=== PATIENT | female | born 1970 | race Caucasian/White ===

== ENCOUNTER 2016-04-18 11:23 | Outpatient (CLI) | payer MEDICAID | END 2016-04-18 11:24 | disposition home or self-care (01) | DX: Z13.220 Encounter for screening for lipoid disorders (principal); R53.82 Chronic fatigue, unspecified ==

== ENCOUNTER 2016-04-20 10:30 | Outpatient (CLI) | payer MEDICAID | END 2016-04-20 10:31 | disposition home or self-care (01) | DX: E78.5 Hyperlipidemia, unspecified (principal); R53.82 Chronic fatigue, unspecified ==

== ENCOUNTER 2016-05-04 15:46 | Outpatient (CLI) | payer MEDICAID | END 2016-05-04 15:47 | disposition home or self-care (01) | DX: I73.9 Peripheral vascular disease, unspecified (principal) ==

== ENCOUNTER 2016-05-20 | Outpatient (CLI) | payer MEDICAID | END 2016-05-20 09:51 | disposition critical access hospital (66) | DX: T50.995A Adverse effect of other drugs, medicaments and biological substances, initial encounter (principal) | CPT/HCPCS: A0425; A0427 ==

== ENCOUNTER 2016-05-20 10:11 | Emergency (ER) | payer MEDICAID ==
[2016-05-20] MEDS ORDERED: predniSONE 20 MG TABLET PO STA (10:26)
[2016-05-20] MEDS ORDERED: predniSONE 20 MG TABLET ONE (10:45)
== END 2016-05-20 12:00 | disposition home or self-care (01) ==
DX: T43.015A Adverse effect of tricyclic antidepressants, initial encounter (principal); L29.9 Pruritus, unspecified; I10 Essential (primary) hypertension; E78.00 Pure hypercholesterolemia, unspecified; M19.90 Unspecified osteoarthritis, unspecified site; M79.7 Fibromyalgia
CPT/HCPCS: 99283; J7512

== ENCOUNTER 2016-06-07 15:03 | Outpatient (CLI) | payer MEDICAID | END 2016-06-07 15:04 | disposition home or self-care (01) | DX: I10 Essential (primary) hypertension (principal) ==

== ENCOUNTER 2016-08-10 10:59 | Outpatient (CLI) | payer MEDICAID ==
[2016-08-10 18:58] LABS: POTASSIUM 3.8 mmol/L (3.5-5.0)
[2016-08-10 19:19] LABS: FOLATE 7.76 ng/mL (5.90 - >24.8)
[2016-08-14 20:01] LABS: TEST RESULT REPORT (())
[2016-08-16 16:10] LABS: ALPHA-TOCOPHEROL 12.7 mg/L (5.7-19.9); BETA-GAMMA-TOCOPHEROL 1.4 mg/L (< 4.3); VITAMIN A (RETINOL) 29 mcg/dL (38-98)
== END 2016-08-10 11:00 | disposition home or self-care (01) ==
LOC: LAB.F 10:59
PROVIDERS: ATTEND Nurse Practitioner Family
DX: R53.83 Other fatigue (principal)
CPT/HCPCS: 36415; 81599; 82306; 82607; 82746; 83540; 83735; 84132; 84207; 84252; 84425; 84446; 84466; 84590; 84630

== ENCOUNTER 2016-08-13 11:05 | Outpatient (CLI) | payer MEDICAID | END 2016-08-13 11:06 | disposition home or self-care (01) | DX: Z00.01 Encounter for general adult medical examination with abnormal findings (principal) ==

== ENCOUNTER 2016-10-15 09:03 | Outpatient (CLI) | payer MEDICAID | END 2016-10-15 09:04 | disposition critical access hospital (66) | LOC: EMS 09:03 | PROVIDERS: ATTEND Surgery | DX: M79.675 Pain in left toe(s) (principal); R52 Pain, unspecified; R55 Syncope and collapse | CPT/HCPCS: A0425; A0429 ==

== ENCOUNTER 2016-10-15 09:30 | Emergency (ER) | payer MEDICAID ==
--- NOTE | 2016-10-15 10:18 | ED Physician Documentation ---
History of Present Illness - Stated complaint Stated Complaint: TOE PX - Chief complaint Chief Complaint: General - Additonal information Additional information: hx from pt 46 f denies preg Pmhx is extensive but pertinent positives are chronic faitgue, fobromyalgia, probable IBS, migraines, chronic pain, and POTS (postural orthostatic tachycardia) with recurrent and freq syncope (she reports being worked up for syncope already) she has a cyst removed from her right great toe last week in [facility] - saw PMD Saturday to have sutures removed - states that since then she has had bleeding and been finding bits of retained suture this AM after caring for her wound she raised her arms in frustration and that triggered her POTS and so she had syncope and fell, landng on the left knee which was already injured after synope and fall August 23 and also pulling the R tricep region did not hit head or hurt neck alsways has chest pain not new or different today has had focal mid L abd pain for a week or two and fears a hernia Review of Systems Constitutional: denies: Fever, Chills Cardiac: reports: Chest pain / pressure (not new) Respiratory: denies: Dyspnea GI: reports: Abdominal Pain. denies: Vomiting : denies: Now EGA (denies) Musculoskeletal: denies: Neck pain Neurologic: reports: Syncope (recurrent 2/2 POTS). 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 : None Psych: None Musculoskeletal: Osteoarthritis, Fibromyalgia, Fatigue Derm: None - Past Surgical History Past Surgical History: No - Present Medications Home Medications: Ambulatory Orders Medication Instructions Recorded Confirmed diphenhydrAMINE [Benadryl] 25 mg PO .FREQ 08/13/15 05/20/16 Tramadol HCl 50 mg PO Q6H PRN #20 tablet 03/21/16 05/20/16 Prednisone 40 mg PO DAILY 3 Days 05/20/16 Promethazine [Phenergan] 25 mg PO Q6H PRN 05/20/16 05/20/16 Anusol TID 10/15/16 Cetirizine [ZyrTEC] 10/15/16 Clobetasol Propionate/Emoll 15 gm TP 10/15/16 [Clobetasol Emollient 0.05% Crm] Diazepam 10 mg PO PRN 10/15/16 10/15/16 Doxycycline Monohydrate [Oracea] 20 mg PO DAILY 10/15/16 10/15/16 Epinephrine [Epipen 2-Kirk] 10/15/16 Ketotifen Fumarate [Allergy Eye 10 ml OP 10/15/16 Drops] Promethazine [Phenergan] 25 mg PO Q6H PRN 10/15/16 10/15/16 Topiramate [Topamax] 100 mg PO BID 10/15/16 10/15/16 Triamcinolone Acetonide [Nasacort] 10.8 ml NS 10/15/16 - Allergies Allergies/Adverse Reactions: Allergies Allergy/AdvReac Type Severity Reaction Status Date / Time apple Allergy Unknown Verified 10/15/16 09:52 barley Allergy Unknown Verified 10/15/16 09:52 garlic Allergy Unknown Verified 10/15/16 09:52 milk Allergy Unknown Verified 10/15/16 09:52 milnacipran HCl * Allergy Rash Verified 05/20/16 10:23 [From Savella] oats Allergy Unknown Verified 10/15/16 09:52 onion Allergy Unknown Verified 10/15/16 09:52 orange Allergy Unknown Verified 10/15/16 09:52 peanut Allergy Unknown Verified 10/15/16 09:52 pineapple Allergy Unknown Verified 10/15/16 09:52 potato Allergy Unknown Verified 10/15/16 09:52 rice Allergy Unknown Verified 10/15/16 09:52 soy Allergy Unknown Verified 10/15/16 09:52 Sulfa (Sulfonamide Allergy Rash Verified 12/23/15 19:38 Antibiotics) tomato Allergy Unknown Verified 10/15/16 09:52 wheat Allergy Unknown Verified 10/15/16 09:52 eggs Allergy Unknown Uncoded 10/15/16 09:52 pepe Allergy Unknown Uncoded 10/15/16 09:52 - Social History Does the pt smoke?: No Smoking Status: Never smoker Does the pt drink ETOH?: No Does the pt have substance abuse?: No - Immunizations Immunizations are current?: Yes - POLST Patient has POLST: No PD ED PE NORMAL - Vitals Vital signs reviewed: Yes - General General: Other (alert cooperative wearing sunglasses and sound cancelling head phones) - HEENT HEENT: Pharynx benign - Neck Neck: No bony TTP - Cardiac Cardiac: RRR - Respiratory Respiratory: No respiratory distress, Clear bilaterally - Abdomen Abdomen: Soft, Other (focal TTP mid L mid abd s palpable defect) - Extremities Extremities: No deformity, Other (TTP patella L knee but no laxity to ACL MCL LL , difficult to range to test mensicus, MSV intact. R great toe appears to be healign well, some local smalle rythma not spreading, no dc, no dehisc, MSV intact. R shoulder full ROM, some TTP to posterior / trip region s palp defect, no hange or color bruising etc, MSV intact) Results - Vitals Vitals: Vital Signs - 24 hr 10/15/16 09:35 Temperature 36.4 C L Heart Rate 93 Respiratory 18 Rate Blood Pressure 139/82 H O2 Saturation 100 Oxygen O2 Source Room air - Tele (time rhythm occurred) 1130 Telemetry / rhythm strip: Other (NSR nl QT) PD MEDICAL DECISION MAKING - ED course ED course: syncope is recurrent and already worked up Departure - Departure Disposition: 01 Home, Self Care Clinical Impression: Visit for wound check Syncope Qualifiers: Syncope type: unspecified Qualified Code(s): R55 - Syncope and collapse Knee injury Qualifiers: Encounter type: initial encounter Laterality: left Qualified Code(s): S89.92XA - Unspecified injury of left lower leg, initial encounter Abdominal pain Qualifiers: Abdominal location: unspecified location Qualified Code(s): R10.9 - Unspecified abdominal pain Strain of left triceps muscle Qualifiers: Encounter type: initial encounter Qualified Code(s): S46.312A - Strain of muscle, fascia and tendon of triceps, left arm, initial encounter Condition: Fair Instructions: ED Immobilizer Knee, ED Crutch Walking Follow-Up: [facility] [Provider Group] ERIK VAZ MD [Provider Admit Priv/Credential] - Mariaa Dixon ARNP [Primary Care Provider] - Comments: Your heart is a regular rate and rhythm now The xray of your abdomen does not show a bowel blockage - it is still possible to have a hernia (defect in the abdominal wall muscle) without bowel being involved but in that case it is not an emergency - please follow up with surgery clinic if the symptoms persist - if you feel better you do not need to see the surgeon - you need to call to schedule. The knee xray shows a possible irregularity along the margin of the bone and some fluid in the knee joint - you will need further imaging such as a MRI which your PMD or orthopedics can arrange - in the meantime you need to wear the knee brace at all times and use the crutches or ride in your wheelchair and not bear any weight on that leg at all - you also need to call to schedule the orthopedic appointment. You can apply ice for 20 minutes three times a day as needed for pain and swelling Also apply ice to the right tricep for twenty minutes three times a day until better The toe wound seems to be healing well - continue your home wound care And follow up with your PMD to get your blood pressure rechecked
--- NOTE | 2016-10-15 11:01 | XRAY Preliminary Report ---
Exam: XR Knee 4 View LT Impression: Mild cortical irregularity involving the medial tibial that may represent a fracture. Knee joint effusion. If pain persists, a MRI of the knee is recommended. [facility] SITE ID: [id number]
--- NOTE | 2016-10-15 11:03 | XRAY Report ---
EXAM: LEFT KNEE RADIOGRAPHY EXAM DATE: 10/15/2016 10:36 AM. CLINICAL HISTORY: Fell on knee. COMPARISON: None. TECHNIQUE: 4 views. FINDINGS: Mild cortical irregularity is noted inferior to the medial tibial plateau that may represent a fractu re. There is a knee joint effusion. No radiopaque foreign body is seen. The joint spaces are well pre served. Impression: Mild cortical irregularity involving the medial tibial that may represent a fracture. Knee joint effusion. If pain persists, a MRI of the knee is recommended. [facility] Referring Provider Line: [phone] SITE ID: [id number]
--- NOTE | 2016-10-15 11:04 | XRAY Preliminary Report ---
Exam: XR Abdomen 1 View IMPRESSION: Normal 1-view abdomen x-ray. [facility] SITE ID: [id number]
--- NOTE | 2016-10-15 11:06 | XRAY Report ---
EXAM: ABDOMEN RADIOGRAPHY EXAM DATE: 10/15/2016 10:35 AM. CLINICAL HISTORY: Single upright. COMPARISON: None. TECHNIQUE: 2 view. FINDINGS: Bowel Gas Pattern: Within normal limits. No dilated loops. Other: None. IMPRESSION: Normal 1-view abdomen x-ray. [facility] Referring Provider Line: [phone] SITE ID: [id number]
[2016-10-15 12:12] VITALS: BP 136/74
== END 2016-10-15 12:00 | disposition home or self-care (01) ==
LOC: EDUNIT# → ED 09:30
DX: R55 Syncope and collapse (principal); S89.92XA Unspecified injury of left lower leg, initial encounter; W18.30XA Fall on same level, unspecified, initial encounter; W22.8XXA Striking against or struck by other objects, initial encounter; R10.9 Unspecified abdominal pain; I10 Essential (primary) hypertension
CPT/HCPCS: 74000; 99283; 99284

== ENCOUNTER 2016-10-30 11:57 | Emergency (ER) | payer MEDICAID ==
[2016-10-30 12:04] VITALS: BP 141/92
--- NOTE | 2016-10-30 13:22 | ED Physician Documentation ---
History of Present Illness - Stated complaint Stated Complaint: R BIG TOE PX - Chief complaint Chief Complaint: Ext Problem - Additonal information Additional information: Patient is a 46-year-old female who had a ganglion cyst removed from her right great toe several weeks ago. She complains of swelling of the toe and is concerned about a possible infection. She denies any other complaints such as fever or chills. There is no nausea vomiting, constipation diarrhea or lower urinary symptoms. This patient does have a history of chronic pain disorders including crying fibromyalgia and migraines. Review of systems: For pertinent positive and negatives in the review of systems please see the history of present illness, otherwise all other systems have been reviewed and are negative. Dragon disclaimer: Parts of this medical record were created using voice recognition technology. Because of the inherent limitations of this system, occasional same sounding word substitutions do occur and persist despite proofreading. Please read the document for context. Review of Systems Constitutional: denies: Fever, Chills PD PAST MEDICAL HISTORY - Past Medical History Cardiovascular: Hypertension, High cholesterol Respiratory: None Neuro: None, Motion sickness Endocrine/Autoimmune: None GI: None HEALTHCARE OR MEDICAL: None : None Psych: None Musculoskeletal: Osteoarthritis, Fibromyalgia, Fatigue Derm: None - Past Surgical History Past Surgical History: No - Present Medications Home Medications: Ambulatory Orders Medication Instructions Recorded Confirmed diphenhydrAMINE [Benadryl] 25 mg PO .FREQ 08/13/15 05/20/16 Tramadol HCl 50 mg PO Q6H PRN #20 tablet 03/21/16 05/20/16 Prednisone 40 mg PO DAILY 3 Days 05/20/16 Promethazine [Phenergan] 25 mg PO Q6H PRN 05/20/16 05/20/16 Anusol TID 10/15/16 Cetirizine [ZyrTEC] 10/15/16 Clobetasol Propionate/Emoll 15 gm TP 10/15/16 [Clobetasol Emollient 0.05% Crm] Diazepam 10 mg PO PRN 10/15/16 10/15/16 Doxycycline Monohydrate [Oracea] 20 mg PO DAILY 10/15/16 10/15/16 Epinephrine [Epipen 2-Kirk] 10/15/16 Ketotifen Fumarate [Allergy Eye 10 ml OP 10/15/16 Drops] Promethazine [Phenergan] 25 mg PO Q6H PRN 10/15/16 10/15/16 Topiramate [Topamax] 100 mg PO BID 10/15/16 10/15/16 Triamcinolone Acetonide [Nasacort] 10.8 ml NS 10/15/16 - Allergies Allergies/Adverse Reactions: Allergies Allergy/AdvReac Type Severity Reaction Status Date / Time apple Allergy Unknown Verified 10/30/16 12:05 barley Allergy Unknown Verified 10/30/16 12:05 garlic Allergy Unknown Verified 10/30/16 12:05 milk Allergy Unknown Verified 10/30/16 12:05 milnacipran HCl * Allergy Rash Verified 10/30/16 12:05 [From Savella] oats Allergy Unknown Verified 10/30/16 12:05 onion Allergy Unknown Verified 10/30/16 12:05 orange Allergy Unknown Verified 10/30/16 12:05 peanut Allergy Unknown Verified 10/30/16 12:05 pineapple Allergy Unknown Verified 10/30/16 12:05 potato Allergy Unknown Verified 10/30/16 12:05 rice Allergy Unknown Verified 10/30/16 12:05 soy Allergy Unknown Verified 10/30/16 12:05 Sulfa (Sulfonamide Allergy Rash Verified 10/30/16 12:05 Antibiotics) tomato Allergy Unknown Verified 10/30/16 12:05 wheat Allergy Unknown Verified 10/30/16 12:05 eggs Allergy Unknown Uncoded 10/30/16 12:05 pepe Allergy Unknown Uncoded 10/30/16 12:05 - Social History Does the pt smoke?: No Smoking Status: Never smoker Does the pt drink ETOH?: No Does the pt have substance abuse?: No - Immunizations Immunizations are current?: Yes - POLST Patient has POLST: No PD ED PE NORMAL - Vitals Vital signs reviewed: Yes - General General: Alert and oriented X 3, No acute distress - HEENT HEENT: Atraumatic, PERRL - Cardiac Cardiac: RRR - Respiratory Respiratory: No respiratory distress - Abdomen Abdomen: Normal bowel sounds - Extremities Extremities: Other (There is no evidence of infection on evaluation of the patient's right great toe. On inspection the tissue is macerated from over bandaging.) - Neuro Neuro: Alert and oriented X 3 - Psych Psych: Normal mood, Normal affect Results - Vitals Vitals: Vital Signs - 24 hr 10/30/16 12:00 Temperature 36.7 C Heart Rate 102 H Respiratory 16 Rate Blood Pressure 141/92 H O2 Saturation 99 Oxygen O2 Source Room air PD MEDICAL DECISION MAKING - ED course Complexity details: other ED course: Patient is a 46-year-old lady who presents with a macerated healing incision on her right great toe where a ganglion cyst was removed there is no evidence of any infection. This macerated tissue was removed using sharp debridement. A small amount of tissue was removed and the toe was wrapped in sterile gauze without tape over it to allow for desiccation of the tissue. Recommend against continued antibiotic since the toe is way too moist. Disposition to home Clinical impression: 1. Macerated skin of her right great toe status post debridement Departure - Departure Disposition: 01 Home, Self Care Clinical Impression: Maceration of skin Condition: Good Instructions: Wound Care Comments: Your healing wound was too wet. Please stop applying antibiotic ointment and keep it covered with a thin layer of gauze so it can dry out. Do not apply anything containing plastic like a Band-Aid which would hold in moisture.
== END 2016-10-30 13:30 | disposition home or self-care (01) ==
LOC: ED 11:57
DX: T69.021A Immersion foot, right foot, initial encounter (principal); Z98.890 Other specified postprocedural states; I10 Essential (primary) hypertension; E78.00 Pure hypercholesterolemia, unspecified; M79.7 Fibromyalgia; M19.90 Unspecified osteoarthritis, unspecified site
CPT/HCPCS: 99282; 99283

== ENCOUNTER 2016-11-08 08:11 | Outpatient (CLI) | payer MEDICAID ==
[2016-11-08 12:09] LABS: BILIRUBIN,URINE NEGATIVE (NEGATIVE); PH,URINE 6.5 PH (5.0-7.5)
[2016-11-08 12:21] LABS: UR CULTURE IF IND NOT INDICATED; WBC,URINE 0-3 /HPF (0-5)
== END 2016-11-08 08:12 ==
LOC: LAB.R 08:11
PROVIDERS: ATTEND Nurse Practitioner Family
DX: N30.90 Cystitis, unspecified without hematuria (principal)
CPT/HCPCS: 81001; 87086

== ENCOUNTER 2016-11-09 10:36 | Outpatient (CLI) | payer MEDICAID ==
[2016-11-13 14:01] LABS: TEST RESULT REPORT (())
== END 2016-11-09 10:37 | disposition home or self-care (01) ==
LOC: LAB.F 10:36
PROVIDERS: ATTEND Internal Medicine
DX: R19.4 Change in bowel habit (principal)
CPT/HCPCS: 36415; 81599; 82784

== ENCOUNTER 2016-11-21 08:00 | Outpatient (CLI) | payer MEDICAID | END 2016-11-21 08:01 | disposition home or self-care (01) | LOC: LAB.R 08:00 | PROVIDERS: ATTEND Internal Medicine | DX: R19.4 Change in bowel habit (principal) | CPT/HCPCS: 82705; 83630; 87015; 87045; 87046; 87272; 87329; 87493 ==

== ENCOUNTER 2016-11-22 12:35 | Emergency (ER) | payer MEDICAID ==
--- NOTE | 2016-11-22 13:19 | ED Physician Documentation ---
PD HPI CHEST PAIN - Stated complaint Stated Complaint: CP - Chief complaint Chief Complaint: Cardiac - History obtained from History obtained from: Patient - History of Present Illness Timing - onset: Today, Last night Timing - onset during: Rest (she does not do much physical activity.) Timing - duration: Days (1) Timing - details: Gradual onset, Still present, Waxing and waning Quality: Aching, Sharp, Pain Location: Substernal, Left chest Radiation: Back Worsened by: Movement, Palpation. No: Inspiration Associated symptoms: Shortness of air. No: Nausea, Feeling faint / dizzy, Palpitations, Cough Similar symptoms before: No diagnosis (has chest pains and diffuse body pains nromally due to fibromyalgia, but chest pain much worse today than usual.) Recently seen: Not recently seen Review of Systems Constitutional: reports: Myalgias, Fatigue. denies: Fever, Chills Nose: denies: Rhinorrhea / runny nose, Congestion Throat: denies: Sore throat Cardiac: reports: Chest pain / pressure. denies: Palpitations Respiratory: reports: Dyspnea. denies: Cough, Wheezing GI: denies: Vomiting, Diarrhea Musculoskeletal: denies: Extremity swelling Neurologic: reports: Generalized weakness. 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 : None Psych: None Musculoskeletal: Osteoarthritis, Fibromyalgia, Fatigue Derm: None - Past Surgical History Past Surgical History: No - Present Medications Home Medications: Ambulatory Orders Medication Instructions Recorded Confirmed diphenhydrAMINE [Benadryl] 25 mg PO .FREQ 08/13/15 05/20/16 Tramadol HCl 50 mg PO Q6H PRN #20 tablet 03/21/16 05/20/16 Prednisone 40 mg PO DAILY 3 Days 05/20/16 Promethazine [Phenergan] 25 mg PO Q6H PRN 05/20/16 05/20/16 Anusol TID 10/15/16 Cetirizine [ZyrTEC] 10/15/16 Clobetasol Propionate/Emoll 15 gm TP 10/15/16 [Clobetasol Emollient 0.05% Crm] Diazepam 10 mg PO PRN 10/15/16 10/15/16 Doxycycline Monohydrate [Oracea] 20 mg PO DAILY 10/15/16 10/15/16 Epinephrine [Epipen 2-Kirk] 10/15/16 Ketotifen Fumarate [Allergy Eye 10 ml OP 10/15/16 Drops] Promethazine [Phenergan] 25 mg PO Q6H PRN 10/15/16 10/15/16 Topiramate [Topamax] 100 mg PO BID 10/15/16 10/15/16 Triamcinolone Acetonide [Nasacort] 10.8 ml NS 10/15/16 Dexamethasone [Decadron] 4 mg PO DAILY #5 tablet 11/22/16 HYDROcod/ACETAM 5/325 [[place] 5/325] 1 tab PO Q6H PRN #20 tablet 11/22/16 - Allergies Allergies/Adverse Reactions: Allergies Allergy/AdvReac Type Severity Reaction Status Date / Time apple Allergy Unknown Verified 11/22/16 12:52 barley Allergy Unknown Verified 11/22/16 12:52 garlic Allergy Unknown Verified 11/22/16 12:52 milk Allergy Unknown Verified 11/22/16 12:52 milnacipran HCl * Allergy Rash Verified 11/22/16 12:52 [From Savella] oats Allergy Unknown Verified 11/22/16 12:52 onion Allergy Unknown Verified 11/22/16 12:52 orange Allergy Unknown Verified 11/22/16 12:52 peanut Allergy Unknown Verified 11/22/16 12:52 pineapple Allergy Unknown Verified 11/22/16 12:52 potato Allergy Unknown Verified 11/22/16 12:52 rice Allergy Unknown Verified 11/22/16 12:52 soy Allergy Unknown Verified 11/22/16 12:52 Sulfa (Sulfonamide Allergy Rash Verified 11/22/16 12:52 Antibiotics) tomato Allergy Unknown Verified 11/22/16 12:52 wheat Allergy Unknown Verified 11/22/16 12:52 eggs Allergy Unknown Uncoded 11/22/16 12:52 pepe Allergy Unknown Uncoded 11/22/16 12:52 - Social History Does the pt smoke?: No Smoking Status: Never smoker Does the pt drink ETOH?: No Does the pt have substance abuse?: No - Immunizations Immunizations are current?: Yes - POLST Patient has POLST: No PD ED PE NORMAL - Vitals Vital signs reviewed: Yes - General General: Alert and oriented X 3, Well developed/nourished - HEENT HEENT: Pharynx benign - Neck Neck: Supple, no meningeal sign, No adenopathy - Cardiac Cardiac: RRR, No murmur, No rub - Respiratory Respiratory: Clear bilaterally, Other (chestwall tenderness diffusely) - Abdomen Abdomen: Soft, Non tender - Derm Derm: Normal color, Warm and dry - Extremities Extremities: No edema, No calf tenderness / cord - Neuro Neuro: Alert and oriented X 3, No motor deficit, Normal speech Results - Vitals Vitals: Vital Signs - 24 hr 11/22/16 11/22/16 11/22/16 12:45 13:37 14:23 Heart Rate 96 93 Respiratory 24 17 Rate Blood Pressure 128/74 127/94 H Blood Pressure 134/70 H [Left] Blood Pressure 128/74 [Right] O2 Saturation 99 99 11/22/16 11/22/16 11/22/16 14:28 15:11 16:11 Heart Rate 85 66 82 Respiratory 18 10 L 17 Rate Blood Pressure 127/94 H 130/89 H 122/78 Blood Pressure [Left] Blood Pressure [Right] O2 Saturation 97 98 97 Oxygen O2 Source Room air - EKG (time done) 12:43 Rate: Rate (enter#) (91) Rhythm: NSR [place]: Normal Intervals: Normal [place] QRS: Normal Ischemia: Normal ST segments. No: ST elevation c/w ischemia, ST depression - Labs Labs: Laboratory Tests 11/22/16 11/22/16 11/22/16 14:10 14:10 14:10 WBC 7.3 RBC 4.40 Hgb 13.5 Hct 39.9 MCV 90.7 MCH 30.6 MCHC 33.7 RDW 13.8 Plt Count 304 MPV 8.5 Neut # 5.4 Lymph # 1.5 [place] # 0.3 Eos # 0.1 Baso # 0.1 Absolute Nucleated RBC 0.00 Nucleated RBCs 0.0 ESR 22 H Sodium 139 Potassium 3.8 Chloride 109 Carbon Dioxide 22 Anion Gap 8.0 BUN 12 Creatinine 0.6 Estimated GFR (MDRD) 107 Glucose 107 H Calcium 8.9 Total Bilirubin 0.3 AST 18 ALT 13 Alkaline Phosphatase 76 Total Creatine Kinase 94 Troponin I C-Reactive Protein < 1.0 Total Protein 7.4 Albumin 4.3 Globulin 3.1 Albumin/Globulin Ratio 1.4 Lipase 34 11/22/16 14:10 WBC RBC Hgb Hct MCV MCH MCHC RDW Plt Count MPV Neut # Lymph # [place] # Eos # Baso # Absolute Nucleated RBC Nucleated RBCs ESR Sodium Potassium Chloride Carbon Dioxide Anion Gap BUN Creatinine Estimated GFR (MDRD) Glucose Calcium Total Bilirubin AST ALT Alkaline Phosphatase Total Creatine Kinase Troponin I < 0.04 C-Reactive Protein Total Protein Albumin Globulin Albumin/Globulin Ratio Lipase - Rads (name of study) chest xray Radiology: Prelim report reviewed (normal) ECHO Radiology: EMP read contemporaneously, Other (prelim report - no signficant process. EF good. No pericardial effusion. ) PD MEDICAL DECISION MAKING - ED course Complexity details: reviewed results, considered differential (given underlying fibro pain and such, hard to distinguish the chest pain. Got ECG, CXR, and ECHO which are okay, so no apparent significant cardiopulmonary process. ), d/w patient Departure - Departure Disposition: 01 Home, Self Care Clinical Impression: Chest pain Qualifiers: Chest pain type: precordial pain Qualified Code(s): R07.2 - Precordial pain Condition: Stable Record reviewed to determine appropriate education?: Yes Instructions: ED Chest Pain NonCardiac Follow-Up: Mariaa Dixon ARNP [Primary Care Provider] - Prescriptions: Dexamethasone [Decadron] 4 mg PO DAILY #5 tablet HYDROcod/ACETAM 5/325 [[place] 5/325] 1 tab PO Q6H PRN #20 tablet PRN Reason: Pain Comments: Drink lots of fluids. continue usual medications. Add dexamethasone daily for 5 days to see if a short steroid course would improve your fibromyalgia symptoms. Add Tylenol or hydrocodone if needed for worse pains. Follow-up with your primary care. Your chest x-ray, EKG, echocardiogram, blood tests appear normal and did not show any signs of heart or lung problems. Discharge Date/Time: 11/22/16 16:40
[2016-11-22] MEDS ORDERED: HYDROcod/ACETAM 5/325 MG TABLET PO STA (13:58)
[2016-11-22] MEDS ORDERED: ONDANSETRON ODT 4 MG TABLET TL STA (13:58)
[2016-11-22] MEDS ORDERED: diazePAM 5 MG TABLET PO STA (13:58)
[2016-11-22] MEDS ORDERED: DEXAMETHASONE 10 MG/ML VIAL PO STA (14:00)
[2016-11-22] MEDS ORDERED: diazePAM 5 MG TABLET PO ONE (14:14)
[2016-11-22] MEDS ORDERED: HYDROcod/ACETAM 5/325 MG TABLET ONE (14:15)
[2016-11-22] MEDS ORDERED: DEXAMETHASONE 10 MG/ML VIAL ONE (14:16)
[2016-11-22] MEDS ORDERED: ONDANSETRON ODT 4 MG TABLET ONE (14:16)
[2016-11-22 14:31] LABS: BASOPHILS # (AUTO) 0.1 10^3/uL (0.0-0.1); BASOPHILS % (AUTO) 0.8 %; EOSINOPHILS # (AUTO) 0.1 10^3/uL (0.0-0.7); EOSINOPHILS % (AUTO) 1.6 %; HCT - HEMATOCRIT 39.9 % (37.0-47.0); HGB - HEMOGLOBIN 13.5 g/dL (12.0-16.0); LYMPHOCYTES # (AUTO) 1.5 10^3/uL (1.5-3.5); LYMPHOCYTES % (AUTO) 19.8 %; MEAN CORPUSCULAR HEMOGLOBIN 30.6 pg (27.0-31.0); MEAN CORPUSCULAR HGB CONC 33.7 g/dL (32.0-36.0); MEAN CORPUSCULAR VOLUME 90.7 fL (81.0-99.0); MEAN PLATELET VOLUME 8.5 fL (7.9-10.8); MONOCYTES # (AUTO) 0.3 10^3/uL (0.0-1.0); MONOCYTES % (AUTO) 3.7 %; NEUTROPHILS # (AUTO) 5.4 10^3/uL (1.5-6.6); NEUTROPHILS % (AUTO) 74.1 %; RED CELL DISTRIBUTION WIDTH 13.8 % (12.0-15.0); UNCORRECTED WHITE BLOOD COUNT 7.3 x10^3/uL; WHITE BLOOD COUNT 7.3 x10^3/uL (4.8-10.8)
[2016-11-22 14:39] LABS: ALBUMIN/GLOBULIN RATIO 1.4 (1.0-2.2); BILIRUBIN,TOTAL 0.3 mg/dL (0.2-1.0); BUN - BLOOD UREA NITROGEN 12 mg/dL (6-20); CALCIUM 8.9 mg/dL (8.5-10.3); CARBON DIOXIDE - CO2 22 mmol/L (21-32); CHLORIDE 109 mmol/L (101-111); CREATININE 0.6 mg/dL (0.4-1.0); GFR - MDRD 107 (>89); GLUCOSE 107 mg/dL (70-100); LIPASE 34 U/L (22-51); POTASSIUM 3.8 mmol/L (3.5-5.0); SODIUM 139 mmol/L (135-145); TOTAL PROTEIN 7.4 g/dL (6.7-8.2)
--- NOTE | 2016-11-22 15:02 | XRAY Preliminary Report ---
Exam: XR Chest 2 View PA/LAT IMPRESSION: Normal 2-view chest radiography. [facility] SITE ID: [id number]
--- NOTE | 2016-11-22 15:06 | XRAY Report ---
EXAM: CHEST RADIOGRAPHY EXAM DATE: 11/22/2016 02:56 PM. CLINICAL HISTORY: Chest pain, headache, nausea and vomiting. COMPARISON: 11/10/2014. TECHNIQUE: 2 views. FINDINGS: Lungs/Pleura: No focal opacities evident. No pleural effusion. No pneumothorax. Normal volumes. Mediastinum: Heart and mediastinal contours are unremarkable. Other: Mild scoliosis. IMPRESSION: Normal 2-view chest radiography. [facility] Referring Provider Line: [phone] SITE ID: [id number]
[2016-11-22 16:13] VITALS: BP 122/78
== END 2016-11-22 16:40 | disposition home or self-care (01) ==
LOC: EDUNIT# → ED 12:35
DX: R07.2 Precordial pain (principal); I10 Essential (primary) hypertension; E78.00 Pure hypercholesterolemia, unspecified; M79.7 Fibromyalgia; M19.90 Unspecified osteoarthritis, unspecified site
CPT/HCPCS: 36415; 71020; 80053; 82550; 83690; 84484; 85025; 85651; 86140; 93005; 93306; 99283; 99284; A9270

== ENCOUNTER 2016-11-22 21:52 | Outpatient (CLI) | payer MEDICAID | END 2016-11-22 21:53 | disposition critical access hospital (66) | LOC: EMS 21:52 | PROVIDERS: ATTEND Surgery | DX: R07.9 Chest pain, unspecified (principal) | CPT/HCPCS: A0425; A0429 ==

== ENCOUNTER 2016-12-14 14:18 | Emergency (ER) | payer MEDICAID ==
[2016-12-14] MEDS ORDERED: ONDANSETRON ODT 4 MG TABLET TL STA (16:11)
--- NOTE | 2016-12-14 16:13 | ED Physician Documentation ---
History of Present Illness - Stated complaint Stated Complaint: NAUSEA - Chief complaint Chief Complaint: General - History obtained from History obtained from: Patient - History of Present Illness Timing: Other (She has a complicatedHistory of pots, chronic fatigue, fibromyalgia. She was in physical therapy today and was feeling persistently nauseous after a gradual onset headache, migraine which is not atypical for her. She requests some nausea medicine but declines IV fluids etc.) - Additonal information Additional information: She is chronically nauseous, the nausea is not new, nor is the headache. Review of Systems Ten Systems: 10 systems reviewed and negative Constitutional: reports: Chills (chronic). 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: None : None Psych: None Musculoskeletal: Osteoarthritis, Fibromyalgia, Fatigue Derm: None - Past Surgical History Past Surgical History: No - Present Medications Home Medications: Ambulatory Orders Medication Instructions Recorded Confirmed diphenhydrAMINE [Benadryl] 25 mg PO .FREQ 08/13/15 05/20/16 Tramadol HCl 50 mg PO Q6H PRN #20 tablet 03/21/16 05/20/16 Prednisone 40 mg PO DAILY 3 Days 05/20/16 Promethazine [Phenergan] 25 mg PO Q6H PRN 05/20/16 05/20/16 Anusol TID 10/15/16 Cetirizine [ZyrTEC] 10/15/16 Clobetasol Propionate/Emoll 15 gm TP 10/15/16 [Clobetasol Emollient 0.05% Crm] Diazepam 10 mg PO PRN 10/15/16 10/15/16 Doxycycline Monohydrate [Oracea] 20 mg PO DAILY 10/15/16 10/15/16 Epinephrine [Epipen 2-Kirk] 10/15/16 Ketotifen Fumarate [Allergy Eye 10 ml OP 10/15/16 Drops] Promethazine [Phenergan] 25 mg PO Q6H PRN 10/15/16 10/15/16 Topiramate [Topamax] 100 mg PO BID 10/15/16 10/15/16 Triamcinolone Acetonide [Nasacort] 10.8 ml NS 10/15/16 Dexamethasone [Decadron] 4 mg PO DAILY #5 tablet 11/22/16 HYDROcod/ACETAM 5/325 [[place] 5/325] 1 tab PO Q6H PRN #20 tablet 11/22/16 Ondansetron HCl [Zofran] 4 mg PO Q6H PRN #10 tablet 12/14/16 - Allergies Allergies/Adverse Reactions: Allergies Allergy/AdvReac Type Severity Reaction Status Date / Time apple Allergy Unknown Verified 11/22/16 12:52 barley Allergy Unknown Verified 11/22/16 12:52 garlic Allergy Unknown Verified 11/22/16 12:52 milk Allergy Unknown Verified 11/22/16 12:52 milnacipran HCl * Allergy Rash Verified 11/22/16 12:52 [From Savella] oats Allergy Unknown Verified 11/22/16 12:52 onion Allergy Unknown Verified 11/22/16 12:52 orange Allergy Unknown Verified 11/22/16 12:52 peanut Allergy Unknown Verified 11/22/16 12:52 pineapple Allergy Unknown Verified 11/22/16 12:52 potato Allergy Unknown Verified 11/22/16 12:52 rice Allergy Unknown Verified 11/22/16 12:52 soy Allergy Unknown Verified 11/22/16 12:52 Sulfa (Sulfonamide Allergy Rash Verified 11/22/16 12:52 Antibiotics) tomato Allergy Unknown Verified 11/22/16 12:52 wheat Allergy Unknown Verified 11/22/16 12:52 eggs Allergy Unknown Uncoded 11/22/16 12:52 pepe Allergy Unknown Uncoded 11/22/16 12:52 - Social History Does the pt smoke?: No Smoking Status: Never smoker Does the pt drink ETOH?: No Does the pt have substance abuse?: No - Immunizations Immunizations are current?: Yes - POLST Patient has POLST: No PD ED PE NORMAL - Vitals Vital signs reviewed: Yes (HR about 90 on my exam) - General General: Alert and oriented X 3, No acute distress - Neck Neck: Supple, no meningeal sign, No bony TTP - Cardiac Cardiac: RRR, No murmur - Respiratory Respiratory: No respiratory distress, Clear bilaterally - Abdomen Abdomen: Non tender - Neuro Neuro: Alert and oriented X 3, energy economist 2-12 intact, No motor deficit, No sensory deficit, Normal speech - Psych Psych: Normal mood, Normal affect Results - Vitals Vitals: Vital Signs - 24 hr 12/14/16 14:28 Temperature 37.0 C Heart Rate 126 H Respiratory 18 Rate Blood Pressure 157/110 H O2 Saturation 100 Oxygen O2 Source Room air PD MEDICAL DECISION MAKING - ED course ED course: The headache is gradual in onset and similar to prior headaches. As such I doubt subarachnoid hemorrhage. There are no infectious symptoms such as fever or stiff neck to make me suspect meningitis. No carbon monoxide exposure by history. Departure - Departure Disposition: Home, Self Care Clinical Impression: Migraine Qualifiers: Migraine type: without aura Status migrainosus presence: with status migrainosus Intractability: intractable Qualified Code(s): G43.011 - Migraine without aura, intractable, with status migrainosus Condition: Good Record reviewed to determine appropriate education?: Yes Instructions: ED Headache Migraine Prescriptions: Ondansetron HCl [Zofran] 4 mg PO Q6H PRN #10 tablet PRN Reason: Nausea / Vomiting Comments: Call your doctor to arrange a follow-up appointment, make the next available appointment. In the interim, return anytime if worse or if new symptoms develop. Your blood pressure was elevated today on check into the emergency department. This does not mean that you have hypertension, it is a common phenomenon to come to the emergency department and have elevated blood pressure. I recommend that she see your primary care physician within the week to have it rechecked when you are feeling better.
[2016-12-14] MEDS ORDERED: ONDANSETRON ODT 4 MG TABLET ONE (16:43)
[2016-12-14 16:46] VITALS: BP 155/78
== END 2016-12-14 16:49 | disposition home or self-care (01) ==
LOC: ED 14:18
DX: G43.011 Migraine without aura, intractable, with status migrainosus (principal); I10 Essential (primary) hypertension; E78.00 Pure hypercholesterolemia, unspecified; M79.7 Fibromyalgia
CPT/HCPCS: 99282; 99283; Q0162

== ENCOUNTER 2017-03-09 21:20 | Outpatient (CLI) | payer MEDICAID | END 2017-03-09 21:21 | disposition EMS.NT | LOC: EMS 21:20 | PROVIDERS: ATTEND Surgery | DX: R53.1 Weakness (principal); W01.0XXA Fall on same level from slipping, tripping and stumbling without subsequent striking against object, initial encounter; Y92.59 Other trade areas as the place of occurrence of the external cause ==

== ENCOUNTER 2017-04-16 13:21 | Outpatient (CLI) | payer MEDICAID | END 2017-04-16 13:22 | disposition critical access hospital (66) | LOC: EMS 13:21 | PROVIDERS: ATTEND Surgery | DX: R60.0 Localized edema (principal); R52 Pain, unspecified | CPT/HCPCS: A0425; A0429 ==

== ENCOUNTER 2017-04-16 13:44 | Emergency (ER) | payer MEDICAID ==
[2017-04-16] MEDS ORDERED: DEXAMETHASONE 10 MG/ML VIAL IVP STA (14:43)
[2017-04-16] MEDS ORDERED: SODIUM CHLORIDE 0.9% 1,000 ML IV ONE (14:43)
--- NOTE | 2017-04-16 14:47 | ED Physician Documentation ---
History of Present Illness - Stated complaint Stated Complaint: ALLERGIC RX - Chief complaint Chief Complaint: General - History obtained from History obtained from: Patient - History of Present Illness Timing: How many days ago (4) - Additonal information Additional information: 46-year-old female with a history of chronic fatigue syndrome and pots syndrome has multiple food allergies and 4 days ago she had a temporary caregiver who made her something to eat that she believes was not on her list of safe foods. She developed some swelling of her gums and nausea and vomiting. She has been having some issue with her stomach for the past 4 days and she is come in now with inability to eat or drink secondary to the pain in her mouth. She has blisters along her gums. Review of Systems Constitutional: reports: Fatigue, Sweats. 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 : None Psych: None Musculoskeletal: Osteoarthritis, Fibromyalgia, Fatigue Derm: None - Past Surgical History Past Surgical History: No - Present Medications Home Medications: Ambulatory Orders Medication Instructions Recorded Confirmed diphenhydrAMINE [Benadryl] 25 mg PO .FREQ 08/13/15 05/20/16 Tramadol HCl 50 mg PO Q6H PRN #20 tablet 03/21/16 05/20/16 Promethazine [Phenergan] 25 mg PO Q6H PRN 05/20/16 05/20/16 predniSONE [Prednisone] 40 mg PO DAILY 3 Days tablet 05/20/16 Anusol TID 10/15/16 Cetirizine [ZyrTEC] 10/15/16 Clobetasol Propionate/Emoll 15 gm TP 10/15/16 [Clobetasol Emollient 0.05% Crm] Doxycycline Monohydrate [Oracea] 20 mg PO DAILY 10/15/16 10/15/16 Epinephrine [Epipen 2-Kirk] 10/15/16 Ketotifen Fumarate [Allergy Eye 10 ml OP 10/15/16 Drops] Promethazine [Phenergan] 25 mg PO Q6H PRN 10/15/16 10/15/16 Topiramate [Topamax] 100 mg PO BID 10/15/16 10/15/16 Triamcinolone Acetonide [Nasacort] 10.8 ml NS 10/15/16 diazePAM [Diazepam] 10 mg PO PRN 10/15/16 10/15/16 Dexamethasone [Decadron] 4 mg PO DAILY #5 tablet 11/22/16 HYDROcod/ACETAM 5/325 [[place] 5/325] 1 tab PO Q6H PRN #20 tablet 11/22/16 Ondansetron HCl [Zofran] 4 mg PO Q6H PRN #10 tablet 12/14/16 - Allergies Allergies/Adverse Reactions: Allergies Allergy/AdvReac Type Severity Reaction Status Date / Time fludrocortisone Allergy Unknown Hives Verified 04/16/17 15:19 apple Allergy Unknown Verified 11/22/16 12:52 barley Allergy Unknown Verified 11/22/16 12:52 garlic Allergy Unknown Verified 11/22/16 12:52 milk Allergy Unknown Verified 11/22/16 12:52 milnacipran HCl * Allergy Rash Verified 11/22/16 12:52 [From Savella] oats Allergy Unknown Verified 11/22/16 12:52 onion Allergy Unknown Verified 11/22/16 12:52 orange Allergy Unknown Verified 11/22/16 12:52 peanut Allergy Unknown Verified 11/22/16 12:52 pineapple Allergy Unknown Verified 11/22/16 12:52 potato Allergy Unknown Verified 11/22/16 12:52 rice Allergy Unknown Verified 11/22/16 12:52 soy Allergy Unknown Verified 11/22/16 12:52 Sulfa (Sulfonamide Allergy Rash Verified 11/22/16 12:52 Antibiotics) tomato Allergy Unknown Verified 11/22/16 12:52 wheat Allergy Unknown Verified 11/22/16 12:52 eggs Allergy Unknown Uncoded 11/22/16 12:52 pepe Allergy Unknown Uncoded 11/22/16 12:52 - Social History Does the pt smoke?: No Smoking Status: Never smoker Does the pt drink ETOH?: No Does the pt have substance abuse?: No - Immunizations Immunizations are current?: Yes - POLST Patient has POLST: No PD ED PE NORMAL - Vitals Vital signs reviewed: Yes (tachy and hypertensive ) - General General: Alert and oriented X 3, Well developed/nourished, Other (46-year-old female lying supine on the bed with dark glasses in a darkened room with earmuffs on. She has a startle response with wailing in pain with just touching her knee on entering the room.) - HEENT HEENT: Atraumatic, PERRL, EOMI, Other (There are multiple deflated blisters over the gums on the lower teeth laterally) - Neck Neck: Supple, no meningeal sign, No bony TTP - Cardiac Cardiac: RRR, No murmur - Respiratory Respiratory: No respiratory distress, Clear bilaterally - Abdomen Abdomen: Soft, Non tender - Back Back: No CVA TTP, No spinal TTP - Derm Derm: Normal color, Warm and dry, No rash - Extremities Extremities: No deformity, No edema, Other (The patient does have allodynia touching her almost anywhere causes some pain response) - Neuro Neuro: No motor deficit, No sensory deficit, Normal speech Eye Opening: Spontaneous Motor: Obeys Commands Verbal: Oriented GCS Score: 15 - Psych Psych: Normal mood, Normal affect Results - Vitals Vitals: Vital Signs - 24 hr 04/16/17 13:46 Temperature 36.5 C Heart Rate 106 H Respiratory 18 Rate Blood Pressure 134/90 H O2 Saturation 100 Oxygen O2 Source Room air - Labs Labs: Laboratory Tests 04/16/17 04/16/17 04/16/17 14:54 14:54 14:54 WBC 6.2 RBC 4.41 Hgb 13.6 Hct 39.4 MCV 89.3 MCH 30.7 MCHC 34.4 RDW 13.2 Plt Count 253 MPV 8.7 Neut # 4.4 Lymph # 1.3 L [place] # 0.4 Eos # 0.1 Baso # 0.0 Absolute Nucleated RBC 0.00 Nucleated RBC % 0.0 Sodium 137 Potassium 4.1 Chloride 103 Carbon Dioxide 22 Anion Gap 12.0 BUN 7 Creatinine 0.5 Estimated GFR (MDRD) 132 Glucose 108 H Calcium 9.2 Total Bilirubin 0.7 AST 24 ALT 16 Alkaline Phosphatase 70 Troponin I < 0.04 Total Protein 6.9 Albumin 3.9 Globulin 3.0 Albumin/Globulin Ratio 1.3 Lipase 30 Urine Color Urine Clarity Urine pH Ur Specific [place] Urine Protein Urine Glucose (UA) Urine Ketones Urine Occult Blood Urine Nitrite Urine Bilirubin Urine Urobilinogen Ur Leukocyte Esterase Ur Microscopic Review Urine Culture Comments 04/16/17 15:06 WBC RBC Hgb Hct MCV MCH MCHC RDW Plt Count MPV Neut # Lymph # [place] # Eos # Baso # Absolute Nucleated RBC Nucleated RBC % Sodium Potassium Chloride Carbon Dioxide Anion Gap BUN Creatinine Estimated GFR (MDRD) Glucose Calcium Total Bilirubin AST ALT Alkaline Phosphatase Troponin I Total Protein Albumin Globulin Albumin/Globulin Ratio Lipase Urine Color YELLOW Urine Clarity CLEAR Urine pH 8.0 H Ur Specific [place] 1.010 Urine Protein NEGATIVE Urine Glucose (UA) NEGATIVE Urine Ketones NEGATIVE Urine Occult Blood NEGATIVE Urine Nitrite NEGATIVE Urine Bilirubin NEGATIVE Urine Urobilinogen 0.2 (NORMAL) Ur Leukocyte Esterase NEGATIVE Ur Microscopic Review NOT INDICATED Urine Culture Comments NOT INDICATED Procedures - IVC sono (time) 1440 Bedside IVC sono: IVC measures (cm) (1.02), IVC collapsed c insp (cm) (complete) , Dehydration (est 1.5liter) PD MEDICAL DECISION MAKING - ED course Complexity details: reviewed results, re-evaluated patient, considered differential, d/w patient ED course: 46-year-old female has had a number of allergic reactions to food previously and she has had what appears to be blisters on the gums of her lower teeth that are resolving. She has not been able to eat for several days she is dehydrated she is administered intravenous fluids and dexamethasone. She also is having some migraine headache and is administered some Dilaudid for that. She also would like to try some viscous lidocaine. Departure - Departure Disposition: 01 Home, Self Care Clinical Impression: Dehydration, Allergy, food Migraine Qualifiers: Migraine type: without aura Status migrainosus presence: without status migrainosus Intractability: not intractable Qualified Code(s): G43.009 - Migraine without aura, not intractable, without status migrainosus Condition: Stable Instructions: ED Dehydration, ED Allergic React Food Follow-Up: Mariaa Dixon ARNP [Primary Care Provider] -
[2017-04-16 15:17] LABS: BASOPHILS % (AUTO) 0.5 %; EOSINOPHILS # (AUTO) 0.1 10^3/uL (0.0-0.7); EOSINOPHILS % (AUTO) 1.5 %; HGB - HEMOGLOBIN 13.6 g/dL (12.0-16.0); LYMPHOCYTES # (AUTO) 1.3 10^3/uL (1.5-3.5); LYMPHOCYTES % (AUTO) 21.5 %; MEAN CORPUSCULAR HEMOGLOBIN 30.7 pg (27.0-31.0); MEAN CORPUSCULAR HGB CONC 34.4 g/dL (32.0-36.0); MEAN CORPUSCULAR VOLUME 89.3 fL (81.0-99.0); MEAN PLATELET VOLUME 8.7 fL (7.9-10.8); MONOCYTES # (AUTO) 0.4 10^3/uL (0.0-1.0); MONOCYTES % (AUTO) 5.7 %; NEUTROPHILS # (AUTO) 4.4 10^3/uL (1.5-6.6); NEUTROPHILS % (AUTO) 70.8 %; PLT - PLATELET COUNT 253 10^3/uL (130-450); RED BLOOD COUNT 4.41 10^6/uL (4.20-5.40); RED CELL DISTRIBUTION WIDTH 13.2 % (12.0-15.0); WHITE BLOOD COUNT 6.2 x10^3/uL (4.8-10.8)
[2017-04-16 15:19] LABS: ALBUMIN 3.9 g/dL (3.2-5.5); ALBUMIN/GLOBULIN RATIO 1.3 (1.0-2.2); BILIRUBIN,TOTAL 0.7 mg/dL (0.2-1.0); CALCIUM 9.2 mg/dL (8.5-10.3); CREATININE 0.5 mg/dL (0.4-1.0); TOTAL PROTEIN 6.9 g/dL (6.7-8.2)
[2017-04-16 15:20] LABS: BILIRUBIN,URINE NEGATIVE (NEGATIVE); GLUCOSE, URINE (UA) NEGATIVE (NEGATIVE); KETONES,URINE (UA) NEGATIVE (NEGATIVE); LEUKOCYTE ESTERASE, URINE NEGATIVE (NEGATIVE); NITRITE,URINE NEGATIVE (NEGATIVE); OCCULT BLOOD,URINE NEGATIVE (NEGATIVE); PROTEIN,URINE NEGATIVE (NEGATIVE); UROBILINOGEN,URINE 0.2 (NORMAL) E.U./dL (NORMAL)
[2017-04-16 15:22] LABS: CLARITY,URINE CLEAR (CLEAR)
[2017-04-16] MEDS ORDERED: ONDANSETRON 4 MG/2 ML VIAL IVP STA (16:36)
[2017-04-16] MEDS ORDERED: HYDROmorphone 1 MG/ML SYRINGE IVP STA (16:36)
[2017-04-16] MEDS ORDERED: LIDOCAINE VISCOUS 2% 15 ML UDC MM STA (16:37)
[2017-04-16 17:50] VITALS: BP 136/84
== END 2017-04-16 17:45 | disposition home or self-care (01) ==
LOC: EDUNIT# → ED 13:44
DX: E86.0 Dehydration (principal); T78.1XXA Other adverse food reactions, not elsewhere classified, initial encounter; X58.XXXA Exposure to other specified factors, initial encounter; G43.009 Migraine without aura, not intractable, without status migrainosus; R53.82 Chronic fatigue, unspecified; R00.0 Tachycardia, unspecified; I10 Essential (primary) hypertension; E78.00 Pure hypercholesterolemia, unspecified; M19.90 Unspecified osteoarthritis, unspecified site; M79.7 Fibromyalgia
CPT/HCPCS: 36415; 80053; 81003; 83690; 84484; 85025; 96374; 96375; 99283; 99284; J1170; 81001; 87086

== ENCOUNTER 2017-07-18 09:53 | Outpatient (CLI) | payer MEDICAID | END 2017-07-18 09:54 | disposition critical access hospital (66) | LOC: EMS 09:53 | PROVIDERS: ATTEND Surgery | DX: M54.2 Cervicalgia (principal) | CPT/HCPCS: A0425; A0429 ==

== ENCOUNTER 2017-07-18 10:23 | Emergency (ER) | payer MEDICAID ==
[2017-07-18] MEDS ORDERED: diazePAM INJ 5 MG/ML SYRINGE IM STA (11:57)
[2017-07-18] MEDS ORDERED: HYDROmorphone 1 MG/ML CARPUJECT IM STA (11:57)
--- NOTE | 2017-07-18 12:02 | ED Physician Documentation ---
History of Present Illness - Stated complaint Stated Complaint: NECK PX - Chief complaint Chief Complaint: General - History obtained from History obtained from: Patient - History of Present Illness Timing: Other (46-year-old woman with chronic fatigue syndrome pots, and a variety of other chronic ailments who presents with 2 days of atraumatic right neck pain and difficulty rotating the neck and lifting the neck. It is not associated with weakness, numbness, or tingling of extremities. 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 : None Psych: None Musculoskeletal: Osteoarthritis, Fibromyalgia, Fatigue Derm: None Other Past Medical History: IBS - Past Surgical History Past Surgical History: No General: Colonoscopy - Present Medications Home Medications: Ambulatory Orders Medication Instructions Recorded Confirmed diphenhydrAMINE [Benadryl] 25 mg PO .FREQ 08/13/15 07/18/17 Cetirizine [ZyrTEC] 10 mg PO DAILY 10/15/16 Doxycycline Monohydrate [Oracea] 20 mg PO DAILY 10/15/16 10/15/16 Epinephrine [Epipen 2-Kirk] 0.3 mg IM PRN PRN 10/15/16 Ketotifen Fumarate [Allergy Eye 10 ml OP 10/15/16 Drops] Topiramate [Topamax] 100 mg PO BID 10/15/16 10/15/16 diazePAM [Diazepam] 10 mg PO PRN 10/15/16 10/15/16 HYDROcod/ACETAM 5/325 [[place] 5/325] 1 - 2 ea PO Q6H PRN #15 tablet 07/18/17 Triamcinolone 0.1% Oint [Kenalog 1 gm TOP BID #3 tube 07/18/17 0.1% Oint] diazePAM [Valium] 5 mg PO TID PRN #10 tablet 07/18/17 - Allergies Allergies/Adverse Reactions: Allergies Allergy/AdvReac Type Severity Reaction Status Date / Time fludrocortisone Allergy Unknown Hives Verified 04/16/17 15:19 apple Allergy Unknown Verified 11/22/16 12:52 barley Allergy Unknown Verified 11/22/16 12:52 garlic Allergy Unknown Verified 11/22/16 12:52 milk Allergy Unknown Verified 11/22/16 12:52 milnacipran HCl * Allergy Rash Verified 11/22/16 12:52 [From Savella] oats Allergy Unknown Verified 11/22/16 12:52 onion Allergy Unknown Verified 11/22/16 12:52 orange Allergy Unknown Verified 11/22/16 12:52 peanut Allergy Unknown Verified 11/22/16 12:52 pineapple Allergy Unknown Verified 11/22/16 12:52 potato Allergy Unknown Verified 11/22/16 12:52 rice Allergy Unknown Verified 11/22/16 12:52 soy Allergy Unknown Verified 11/22/16 12:52 Sulfa (Sulfonamide Allergy Rash Verified 11/22/16 12:52 Antibiotics) tomato Allergy Unknown Verified 11/22/16 12:52 wheat Allergy Unknown Verified 11/22/16 12:52 eggs Allergy Unknown Uncoded 11/22/16 12:52 pepe Allergy Unknown Uncoded 11/22/16 12:52 - Social History Does the pt smoke?: No Smoking Status: Never smoker Does the pt drink ETOH?: No Does the pt have substance abuse?: No - Immunizations Immunizations are current?: Yes - POLST Patient has POLST: No PD ED PE NORMAL - Vitals Vital signs reviewed: Yes - General General: Alert and oriented X 3, No acute distress - Neck Neck: Other (Tender over the right sternocleidomastoid and cannot rotate the neck.) - Derm Derm: Other (There is a spotty red rash on the dorsal forearm most consistent with eczema or a localized allergic reaction.) - Extremities Extremities: Other (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 Departure - Departure Disposition: 01 Home, Self Care Clinical Impression: Rash Strain of sternocleidomastoid muscle Qualifiers: Encounter type: initial encounter Qualified Code(s): S16.1XXA - Strain of muscle, fascia and tendon at neck level, initial encounter Condition: Good Record reviewed to determine appropriate education?: Yes Instructions: ED Spasm Neck No Injury Prescriptions: diazePAM [Valium] 5 mg PO TID PRN #10 tablet PRN Reason: Spasms HYDROcod/ACETAM 5/325 [[place] 5/325] 1 - 2 ea PO Q6H PRN #15 tablet PRN Reason: Pain Triamcinolone 0.1% Oint [Kenalog 0.1% Oint] 1 gm TOP BID #3 tube Comments: The cream is for the rash on her right arm, it is a nonspecific rash and should respond to the steroid cream. Return if worsening or if new symptoms develop. Do not drink or drive while taking either of the other prescriptions. Gentle motion and stretching is advised and consider a massage. Follow-up with your doctor, next available appointment.
[2017-07-18] MEDS ORDERED: HYDROmorphone 2 MG/ML VIAL IM STA (12:05)
[2017-07-18] MEDS ORDERED: ONDANSETRON 4 MG/2 ML VIAL IM STA (12:27)
[2017-07-18] MEDS ORDERED: PROMETHAZINE 25 MG/1 ML VIAL IM STA (12:27)
[2017-07-18 13:03] VITALS: BP 149/99
== END 2017-07-18 13:09 | disposition home or self-care (01) ==
LOC: EDUNIT# → ED 10:23
DX: R21 Rash and other nonspecific skin eruption (principal); S16.1XXA Strain of muscle, fascia and tendon at neck level, initial encounter; X58.XXXA Exposure to other specified factors, initial encounter; M79.7 Fibromyalgia; M19.90 Unspecified osteoarthritis, unspecified site; R53.82 Chronic fatigue, unspecified
CPT/HCPCS: 96372; 99283; J1170

== ENCOUNTER 2017-07-29 09:53 | Emergency (ER) | payer MEDICAID ==
[2017-07-29 10:36] LABS: BASOPHILS # (AUTO) 0.1 10^3/uL (0.0-0.1); BASOPHILS % (AUTO) 1.1 %; EOSINOPHILS # (AUTO) 0.1 10^3/uL (0.0-0.7); EOSINOPHILS % (AUTO) 1.9 %; LYMPHOCYTES # (AUTO) 1.6 10^3/uL (1.5-3.5); LYMPHOCYTES % (AUTO) 31.7 %; MEAN CORPUSCULAR HEMOGLOBIN 31.1 pg (27.0-31.0); MEAN CORPUSCULAR HGB CONC 33.8 g/dL (32.0-36.0); MEAN CORPUSCULAR VOLUME 91.9 fL (81.0-99.0); MEAN PLATELET VOLUME 7.8 fL (7.9-10.8); MONOCYTES # (AUTO) 0.3 10^3/uL (0.0-1.0); NEUTROPHILS # (AUTO) 2.9 10^3/uL (1.5-6.6); NEUTROPHILS % (AUTO) 59.3 %; PLT - PLATELET COUNT 310 10^3/uL (130-450); RED BLOOD COUNT 4.51 10^6/uL (4.20-5.40); RED CELL DISTRIBUTION WIDTH 13.7 % (12.0-15.0); WHITE BLOOD COUNT 4.9 x10^3/uL (4.8-10.8)
[2017-07-29 10:50] LABS: ALBUMIN 4.2 g/dL (3.2-5.5); ALBUMIN/GLOBULIN RATIO 1.3 (1.0-2.2); BILIRUBIN,TOTAL 0.9 mg/dL (0.2-1.0); CALCIUM 9.1 mg/dL (8.5-10.3); CREATININE 0.5 mg/dL (0.4-1.0); TOTAL PROTEIN 7.5 g/dL (6.7-8.2)
[2017-07-29] MEDS ORDERED: SODIUM CHLORIDE 0.9% 1,000 ML IV ONE (11:21)
--- NOTE | 2017-07-29 11:25 | ED Physician Documentation ---
History of Present Illness - Stated complaint Stated Complaint: RT EYE VISION ISSUE - Chief complaint Chief Complaint: Heent - History obtained from History obtained from: Patient - History of Present Illness Timing: Today - Additonal information Additional information: 46-year-old female with multiple medical problems including fibromyalgia and pots has developed some chest pain this morning which is now resolved and she has noted a red spot on her right eye. She look this up and believes it is a subconjunctival hemorrhage. She is come to the emergency department to get this checked out and notes that she does not feel well today and that she feels that she might be dehydrated. She has had this similar feeling when she has been dehydrated. Previously. Review of Systems Constitutional: denies: Fever, Chills Eyes: reports: Photophobia, Other (Red spot to the right eye). denies: Loss of vision, Decreased vision Ears: denies: Ear pain Nose: denies: Congestion Throat: denies: Sore throat Cardiac: reports: Chest pain / pressure Respiratory: denies: Dyspnea, Cough GI: denies: Nausea, Vomiting : denies: Dysuria Musculoskeletal: reports: Other (generalized pain) PD PAST MEDICAL HISTORY - Past Medical History Past Medical History: Yes Cardiovascular: Other Respiratory: None Neuro: None, Motion sickness, Fainting, Other Endocrine/Autoimmune: None GI: Other CONTRACTOR BUYER: None : None Psych: None Musculoskeletal: Osteoarthritis, Fibromyalgia, Fatigue Derm: None - Past Surgical History Past Surgical History: No General: Colonoscopy - Present Medications Home Medications: Ambulatory Orders Medication Instructions Recorded Confirmed diphenhydrAMINE [Benadryl] 25 mg PO .FREQ 08/13/15 07/18/17 Cetirizine [ZyrTEC] 10 mg PO DAILY 10/15/16 Doxycycline Monohydrate [Oracea] 20 mg PO DAILY 10/15/16 10/15/16 Epinephrine [Epipen 2-Kirk] 0.3 mg IM PRN PRN 10/15/16 Ketotifen Fumarate [Allergy Eye 10 ml OP 10/15/16 Drops] Topiramate [Topamax] 100 mg PO BID 10/15/16 10/15/16 diazePAM [Diazepam] 10 mg PO PRN 10/15/16 10/15/16 HYDROcod/ACETAM 5/325 [[place] 5/325] 1 - 2 ea PO Q6H PRN #15 tablet 07/18/17 Triamcinolone 0.1% Oint [Kenalog 1 gm TOP BID #3 tube 07/18/17 0.1% Oint] diazePAM [Valium] 5 mg PO TID PRN #10 tablet 07/18/17 - Allergies Allergies/Adverse Reactions: Allergies Allergy/AdvReac Type Severity Reaction Status Date / Time fludrocortisone Allergy Unknown Hives Verified 04/16/17 15:19 apple Allergy Unknown Verified 11/22/16 12:52 barley Allergy Unknown Verified 11/22/16 12:52 garlic Allergy Unknown Verified 11/22/16 12:52 milk Allergy Unknown Verified 11/22/16 12:52 milnacipran HCl * Allergy Rash Verified 11/22/16 12:52 [From Savella] oats Allergy Unknown Verified 11/22/16 12:52 onion Allergy Unknown Verified 11/22/16 12:52 orange Allergy Unknown Verified 11/22/16 12:52 peanut Allergy Unknown Verified 11/22/16 12:52 pineapple Allergy Unknown Verified 11/22/16 12:52 potato Allergy Unknown Verified 11/22/16 12:52 rice Allergy Unknown Verified 11/22/16 12:52 soy Allergy Unknown Verified 11/22/16 12:52 Sulfa (Sulfonamide Allergy Rash Verified 11/22/16 12:52 Antibiotics) tomato Allergy Unknown Verified 11/22/16 12:52 wheat Allergy Unknown Verified 11/22/16 12:52 eggs Allergy Unknown Uncoded 11/22/16 12:52 pepe Allergy Unknown Uncoded 11/22/16 12:52 - Social History Does the pt smoke?: No Smoking Status: Never smoker Does the pt drink ETOH?: No Does the pt have substance abuse?: No - Immunizations Immunizations are current?: Yes - POLST Patient has POLST: No PD ED PE NORMAL - Vitals Vital signs reviewed: Yes - General General: Alert and oriented X 3, Well developed/nourished, Other (46 y/o female with a hat pulled down over her face a mask on and sunglasses is shaking in the right arm ) - HEENT HEENT: Atraumatic, PERRL, EOMI, Other (There is a small subconjunctival hemmorrhage to the right lateral inferior sclera) - Neck Neck: Supple, no meningeal sign, No bony TTP - Cardiac Cardiac: RRR, No murmur - Respiratory Respiratory: No respiratory distress, Clear bilaterally - Abdomen Abdomen: Soft, Non tender - Back Back: No CVA TTP, No spinal TTP - Derm Derm: Normal color, Warm and dry, No rash - Extremities Extremities: No deformity, No edema - Neuro Neuro: No motor deficit, No sensory deficit, Other (There is a tremor to the right arm present. ) Eye Opening: Spontaneous Motor: Obeys Commands Verbal: Oriented GCS Score: 15 - Psych Psych: Normal mood, Normal affect Results - Vitals Vitals: Vital Signs - 24 hr 07/29/17 10:09 Temperature 36.5 C Heart Rate 96 Respiratory 18 Rate Blood Pressure 146/93 H O2 Saturation 100 Oxygen O2 Source Room air - EKG (time done) 1056 Rate: Rate (enter#) (82) Rhythm: NSR, LAE QRS: LVH Compare to prior EKG: Unchanged from prior EKG (11-22-2016) Computer interpretation: Agree with computer - Labs Labs: Laboratory Tests 07/29/17 07/29/17 07/29/17 10:33 10:33 10:33 WBC 4.9 RBC 4.51 Hgb 14.0 Hct 41.4 MCV 91.9 MCH 31.1 H MCHC 33.8 RDW 13.7 Plt Count 310 MPV 7.8 L Neut # 2.9 Lymph # 1.6 [place]yer # 0.3 Eos # 0.1 Baso # 0.1 Absolute Nucleated RBC 0.00 Nucleated RBC % 0.0 Sodium 136 Potassium 3.9 Chloride 106 Carbon Dioxide 23 Anion Gap 7.0 BUN 14 Creatinine 0.5 Estimated GFR (MDRD) 132 Glucose 101 H Calcium 9.1 Total Bilirubin 0.9 AST 21 ALT 16 Alkaline Phosphatase 78 Troponin I < 0.04 Total Protein 7.5 Albumin 4.2 Globulin 3.3 Albumin/Globulin Ratio 1.3 Lipase 33 Procedures - IVC sono (time) 1120 Bedside IVC sono: IVC measures (cm) (1.02), IVC collapsed c insp (cm) (complete) , Dehydration (est 1-2 liters) PD MEDICAL DECISION MAKING - ED course Complexity details: reviewed old records, reviewed results, re-evaluated patient , considered differential, d/w patient ED course: 46-year-old female with complicated past medical history has a small subconjunctival hemorrhage on the right sclera of no significant consequence. She does present to the emergency department with some shaking of the right arm and feels dehydrated and on interrogation of the inferior vena cava she is indeed found to be dehydrated and IV saline is begun. Departure - Departure Disposition: 01 Home, Self Care Clinical Impression: Dehydration Condition: Stable Instructions: ED Dehydration Follow-Up: Mariaa Dixon ARNP [Primary Care Provider] -
[2017-07-29 13:01] VITALS: BP 135/74
== END 2017-07-29 13:07 | disposition home or self-care (01) ==
LOC: ED 09:53
DX: E86.0 Dehydration (principal); H11.31 Conjunctival hemorrhage, right eye; M79.7 Fibromyalgia; M19.90 Unspecified osteoarthritis, unspecified site
CPT/HCPCS: 36415; 80053; 83690; 84484; 85025; 93005; 96360; 99283; 99284

== ENCOUNTER 2017-08-05 14:06 | Outpatient (CLI) | payer MEDICAID | END 2017-08-05 14:07 | disposition EMS.NT | LOC: EMS 14:06 | PROVIDERS: ATTEND Surgery | DX: M25.551 Pain in right hip (principal); W18.30XA Fall on same level, unspecified, initial encounter; Z91.81 History of falling; Y92.009 Unspecified place in unspecified non-institutional (private) residence as the place of occurrence of the external cause ==

== ENCOUNTER 2017-11-03 13:00 | Emergency (ER) | payer MEDICAID ==
[2017-11-03] MEDS ORDERED: SODIUM CHLORIDE 0.9% 1,000 ML IV ONE (13:49)
--- NOTE | 2017-11-03 14:09 | ED Physician Documentation ---
History of Present Illness - Stated complaint Stated Complaint: WEAKNESS/DEHYDRATION - Chief complaint Chief Complaint: General - History obtained from History obtained from: Patient - History of Present Illness Timing: Today Pain level max: 0 Pain level now: 0 Improved by: rest Worsened by: nothing - Additonal information Additional information: Patient is a 47-year-old female who presents to the emergency department with generalized weakness. She states that she feels dehydrated and that this happens to her frequently. Has a history of POTS. Patient states she just feels tired and wants to go home. She has caregivers that provide her care at home. No fevers. No vomiting. No abdominal pain. No headache. Review of Systems Constitutional: denies: Fever, Chills Ears: denies: Ear pain Nose: denies: Rhinorrhea / runny nose, Congestion Throat: denies: Sore throat Cardiac: denies: Chest pain / pressure Respiratory: denies: Cough GI: denies: Nausea, Vomiting, Diarrhea Skin: denies: Rash Musculoskeletal: denies: Neck pain, Back pain Neurologic: denies: Headache PD PAST MEDICAL HISTORY - Past Medical History Cardiovascular: Other Respiratory: None Endocrine/Autoimmune: None GI: Other PAIN MEDICINE PHYSICIAN: None : None Psych: None Musculoskeletal: Osteoarthritis, Fibromyalgia, Fatigue Derm: None - Past Surgical History Past Surgical History: No General: Colonoscopy - Present Medications Home Medications: Ambulatory Orders Medication Instructions Recorded Confirmed diphenhydrAMINE [Benadryl] 25 mg PO .FREQ 08/13/15 07/18/17 Cetirizine [ZyrTEC] 10 mg PO DAILY 10/15/16 Doxycycline Monohydrate [Oracea] 20 mg PO DAILY 10/15/16 10/15/16 Epinephrine [Epipen 2-Kirk] 0.3 mg IM PRN PRN 10/15/16 Ketotifen Fumarate [Allergy Eye 10 ml OP 10/15/16 Drops] Topiramate [Topamax] 100 mg PO BID 10/15/16 10/15/16 diazePAM [Diazepam] 10 mg PO PRN 10/15/16 10/15/16 HYDROcod/ACETAM 5/325 [[place] 5/325] 1 - 2 ea PO Q6H PRN #15 tablet 07/18/17 Triamcinolone 0.1% Oint [Kenalog 1 gm TOP BID #3 tube 07/18/17 0.1% Oint] diazePAM [Valium] 5 mg PO TID PRN #10 tablet 07/18/17 - Allergies Allergies/Adverse Reactions: Allergies Allergy/AdvReac Type Severity Reaction Status Date / Time fludrocortisone Allergy Unknown Hives Verified 04/16/17 15:19 apple Allergy Unknown Verified 11/22/16 12:52 barley Allergy Unknown Verified 11/22/16 12:52 garlic Allergy Unknown Verified 11/22/16 12:52 milk Allergy Unknown Verified 11/22/16 12:52 milnacipran HCl * Allergy Rash Verified 11/22/16 12:52 [From Savella] oats Allergy Unknown Verified 11/22/16 12:52 onion Allergy Unknown Verified 11/22/16 12:52 orange Allergy Unknown Verified 11/22/16 12:52 peanut Allergy Unknown Verified 11/22/16 12:52 pineapple Allergy Unknown Verified 11/22/16 12:52 potato Allergy Unknown Verified 11/22/16 12:52 rice Allergy Unknown Verified 11/22/16 12:52 soy Allergy Unknown Verified 11/22/16 12:52 Sulfa (Sulfonamide Allergy Rash Verified 11/22/16 12:52 Antibiotics) tomato Allergy Unknown Verified 11/22/16 12:52 wheat Allergy Unknown Verified 11/22/16 12:52 eggs Allergy Unknown Uncoded 11/22/16 12:52 pepe Allergy Unknown Uncoded 11/22/16 12:52 - Social History Does the pt smoke?: No Smoking Status: Never smoker Does the pt drink ETOH?: No Does the pt have substance abuse?: No - Immunizations Immunizations are current?: Yes - POLST Patient has POLST: No PD ED PE NORMAL - Vitals Vital signs reviewed: Yes - General General: Alert and oriented X 3, No acute distress, Other (tearful at times) - HEENT HEENT: PERRL, Moist mucous membranes, Pharynx benign - Neck Neck: Supple, no meningeal sign - Cardiac Cardiac: RRR - Respiratory Respiratory: No respiratory distress, Clear bilaterally - Abdomen Abdomen: Soft, Non tender, Non distended - Back Back: No spinal TTP - Derm Derm: Warm and dry - Extremities Extremities: No deformity, No edema, No calf tenderness / cord - Neuro Neuro: Alert and oriented X 3 - Psych Psych: Normal mood, Normal affect Results - Vitals Vitals: Vital Signs - 24 hr 11/03/17 11/03/17 13:08 15:18 Temperature 36.8 C 36.5 C Heart Rate 92 77 Respiratory 14 15 Rate Blood Pressure 147/99 H 154/98 H O2 Saturation 100 100 Oxygen O2 Source Room air - Labs Labs: Laboratory Tests 11/03/17 11/03/17 11/03/17 14:00 14:00 15:00 WBC 6.3 RBC 4.35 Hgb 13.9 Hct 40.3 MCV 92.6 MCH 31.9 H MCHC 34.5 RDW 13.6 Plt Count 279 MPV 7.9 Neut # (Auto) 4.0 Lymph # (Auto) 1.7 [place] # (Auto) 0.3 Eos # (Auto) 0.2 Baso # (Auto) 0.1 Absolute Nucleated RBC 0.00 Nucleated RBC % 0.0 Sodium 137 Potassium 4.0 Chloride 103 Carbon Dioxide 24 Anion Gap 10.0 BUN 11 Creatinine 0.5 Estimated GFR (MDRD) 132 Glucose 97 Calcium 9.0 Total Bilirubin 0.7 AST 20 ALT 17 Alkaline Phosphatase 73 Total Protein 7.6 Albumin 3.9 Globulin 3.7 Albumin/Globulin Ratio 1.1 Lipase 35 Urine Color YELLOW Urine Clarity CLEAR Urine pH 7.0 Ur Specific [place] 1.010 Urine Protein NEGATIVE Urine Glucose (UA) NEGATIVE Urine Ketones NEGATIVE Urine Occult Blood NEGATIVE Urine Nitrite NEGATIVE Urine Bilirubin NEGATIVE Urine Urobilinogen 0.2 (NORMAL) Ur Leukocyte Esterase NEGATIVE Ur Microscopic Review NOT INDICATED Urine Culture Comments NOT INDICATED PD MEDICAL DECISION MAKING - ED course Complexity details: reviewed results, re-evaluated patient, considered differential, d/w patient ED course: Patient is a 47-year-old female who presents to the emergency department with dehydration. Feels much better after IV fluids and requests to go home at this time. Patient counseled regarding signs and symptoms for which I believe and urgent re-evaluation would be necessary. Patient with good understanding of and agreement to plan and is comfortable going home at this time This document was made in part using voice recognition software. While efforts are made to proofread this document, sound alike and grammatical errors may occur. - Sepsis Event Vital Signs: Vital Signs - 24 hr 11/03/17 11/03/17 13:08 15:18 Temperature 36.8 C 36.5 C Heart Rate 92 77 Respiratory 14 15 Rate Blood Pressure 147/99 H 154/98 H O2 Saturation 100 100 Oxygen O2 Source Room air Departure - Departure Disposition: 01 Home, Self Care Clinical Impression: Dehydration Condition: Good Instructions: ED Dehydration Follow-Up: Mariaa Dixon ARNP [Primary Care Provider] - Within 1 week Comments: Return if you worsen. Drink plenty of fluids. Discharge Date/Time: 11/03/17 15:26
[2017-11-03 14:20] LABS: BASOPHILS # (AUTO) 0.1 10^3/uL (0.0-0.1); BASOPHILS % (AUTO) 1.2 %; EOSINOPHILS # (AUTO) 0.2 10^3/uL (0.0-0.7); EOSINOPHILS % (AUTO) 2.5 %; HGB - HEMOGLOBIN 13.9 g/dL (12.0-16.0); LYMPHOCYTES # (AUTO) 1.7 10^3/uL (1.5-3.5); LYMPHOCYTES % (AUTO) 27.8 %; MEAN CORPUSCULAR HEMOGLOBIN 31.9 pg (27.0-31.0); MEAN CORPUSCULAR HGB CONC 34.5 g/dL (32.0-36.0); MEAN CORPUSCULAR VOLUME 92.6 fL (81.0-99.0); MEAN PLATELET VOLUME 7.9 fL (7.9-10.8); MONOCYTES # (AUTO) 0.3 10^3/uL (0.0-1.0); MONOCYTES % (AUTO) 4.1 %; NEUTROPHILS % (AUTO) 64.4 %; PLT - PLATELET COUNT 279 10^3/uL (130-450); RED BLOOD COUNT 4.35 10^6/uL (4.20-5.40); RED CELL DISTRIBUTION WIDTH 13.6 % (12.0-15.0); WHITE BLOOD COUNT 6.3 x10^3/uL (4.8-10.8)
[2017-11-03 14:34] LABS: ALBUMIN 3.9 g/dL (3.2-5.5); ALBUMIN/GLOBULIN RATIO 1.1 (1.0-2.2); BILIRUBIN,TOTAL 0.7 mg/dL (0.2-1.0); CREATININE 0.5 mg/dL (0.4-1.0); TOTAL PROTEIN 7.6 g/dL (6.7-8.2)
[2017-11-03 15:19] VITALS: BP 154/98
[2017-11-03 15:21] LABS: BILIRUBIN,URINE NEGATIVE (NEGATIVE); GLUCOSE, URINE (UA) NEGATIVE (NEGATIVE); KETONES,URINE (UA) NEGATIVE (NEGATIVE); LEUKOCYTE ESTERASE, URINE NEGATIVE (NEGATIVE); NITRITE,URINE NEGATIVE (NEGATIVE); OCCULT BLOOD,URINE NEGATIVE (NEGATIVE); PROTEIN,URINE NEGATIVE (NEGATIVE); UROBILINOGEN,URINE 0.2 (NORMAL) E.U./dL (NORMAL)
[2017-11-03 15:22] LABS: CLARITY,URINE CLEAR (CLEAR)
== END 2017-11-03 15:26 | disposition home or self-care (01) ==
LOC: ED 13:00
DX: E86.0 Dehydration (principal)
CPT/HCPCS: 36415; 80053; 81001; 81003; 83690; 85025; 87086; 99283

== ENCOUNTER 2018-01-08 14:42 | Outpatient (CLI) | payer MEDICAID | END 2018-01-08 14:43 | disposition home or self-care (01) | LOC: LAB.F 14:42 | PROVIDERS: ATTEND Nurse Practitioner Family | DX: R53.83 Other fatigue (principal) ==

== ENCOUNTER 2018-01-09 14:21 | Outpatient (CLI) | payer MEDICAID ==
[2018-01-09 17:13] LABS: BASOPHILS % (AUTO) 0.6 %; EOSINOPHILS # (AUTO) 0.2 10^3/uL (0.0-0.7); EOSINOPHILS % (AUTO) 3.2 %; HGB - HEMOGLOBIN 14.5 g/dL (12.0-16.0); LYMPHOCYTES # (AUTO) 2.3 10^3/uL (1.5-3.5); LYMPHOCYTES % (AUTO) 37.4 %; MEAN CORPUSCULAR HEMOGLOBIN 31.7 pg (27.0-31.0); MEAN CORPUSCULAR HGB CONC 34.1 g/dL (32.0-36.0); MEAN CORPUSCULAR VOLUME 92.9 fL (81.0-99.0); MEAN PLATELET VOLUME 8.7 fL (7.9-10.8); MONOCYTES # (AUTO) 0.4 10^3/uL (0.0-1.0); MONOCYTES % (AUTO) 5.7 %; NEUTROPHILS # (AUTO) 3.3 10^3/uL (1.5-6.6); NEUTROPHILS % (AUTO) 53.1 %; PLT - PLATELET COUNT 316 10^3/uL (130-450); RED BLOOD COUNT 4.57 10^6/uL (4.20-5.40); RED CELL DISTRIBUTION WIDTH 13.1 % (12.0-15.0); WHITE BLOOD COUNT 6.2 x10^3/uL (4.8-10.8)
[2018-01-09 17:33] LABS: ALBUMIN 4.4 g/dL (3.2-5.5); ALBUMIN/GLOBULIN RATIO 1.2 (1.0-2.2); ALKALINE PHOSPHATASE 72 IU/L (42-121); ALT ALANINE AMINOTRANSFERASE 19 IU/L (10-60); AST ASPARTATE AMINOTRANSFERASE 22 IU/L (10-42); BILIRUBIN,TOTAL 0.8 mg/dL (0.2-1.0); BUN - BLOOD UREA NITROGEN 10 mg/dL (6-20); CALCIUM 9.2 mg/dL (8.5-10.3); CARBON DIOXIDE - CO2 26 mmol/L (21-32); CHLORIDE 102 mmol/L (101-111); CHOLESTEROL 250 mg/dL; CREATININE 0.5 mg/dL (0.4-1.0); GFR - MDRD 132 (>89); GLUCOSE 92 mg/dL (70-100); HDL CHOLESTEROL 82 mg/dL; LDL CHOLESTEROL,CALCULATED 157 mg/dL; LDL/HDL RATIO 1.9 (<4.4); SODIUM 138 mmol/L (135-145); TOTAL PROTEIN 8.1 g/dL (6.7-8.2); VLDL CHOLESTEROL 11 mg/dL
[2018-01-09 17:42] LABS: THYROID STIMULATING HORMONE 2.82 uIU/mL (0.34-5.60)
[2018-01-09 17:53] LABS: FOLATE 13.65 ng/mL (5.90 - >24.8)
== END 2018-01-09 14:22 | disposition home or self-care (01) ==
LOC: LAB.F 14:21
PROVIDERS: ATTEND Nurse Practitioner Family
DX: R53.83 Other fatigue (principal); E78.5 Hyperlipidemia, unspecified
CPT/HCPCS: 36415; 80053; 80061; 82306; 82607; 82746; 83721; 84207; 84425; 84443; 84446; 84590; 84630; 85025

== ENCOUNTER 2018-07-01 22:03 | Emergency (ER) | payer MEDICAID ==
--- NOTE | 2018-07-01 22:34 | ED Physician Documentation ---
History of Present Illness - Stated complaint Stated Complaint: HIGH BP - Chief complaint Chief Complaint: Cardiac - History obtained from History obtained from: Patient - History of Present Illness Timing: How many days ago (2-3 days) Improved by: nothing Worsened by: no exacerbating factors - Additonal information Additional information: multiple c/o. Her chief c/o is high blood pressure. She says her blood pressures at home tonight were 161/111 and 165/116, and that her doctor had given her parameters of 180/105 as indication to go to the emergency department (if the systolic is over 180 and/or the diastolic is over 105). Patient also c/o dizziness, dyspnea, chest pain, bilateral leg pain (R>L), generalized headache, nausea, sweats. she says she has had most of these symptoms since being seen at [facility] 06/18, which she says she goes to on a regular basis for tests involving POTS and some of her other chronic symptoms. She says she used to take propranolol for HTN and this is to be restarted per her recent visit with her PMD, and she expects the rx to arrive in the mail tomorrow. Review of Systems Constitutional: reports: Sweats. denies: Fever, Chills Cardiac: reports: Chest pain / pressure (chronic), Calf pain (bilateral, R>L). denies: Palpitations, Pedal edema Respiratory: reports: Dyspnea. denies: Cough, Hemoptysis, Wheezing GI: reports: Nausea. denies: Abdominal Pain, Vomiting : denies: Dysuria, Frequency Musculoskeletal: reports: Extremity pain Neurologic: reports: Headache. 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 : None Psych: None Musculoskeletal: Osteoarthritis, Fibromyalgia, Fatigue Derm: None - Past Surgical History Past Surgical History: No General: Colonoscopy - Present Medications Home Medications: Ambulatory Orders Medication Instructions Recorded Confirmed diphenhydrAMINE [Benadryl] 25 mg PO .FREQ 08/13/15 07/18/17 Cetirizine [ZyrTEC] 10 mg PO DAILY 10/15/16 Doxycycline Monohydrate [Oracea] 20 mg PO DAILY 10/15/16 10/15/16 EPINEPHrine [Epipen 2-Kirk] 0.3 mg IM PRN PRN 10/15/16 Ketotifen Fumarate [Allergy Eye 10 ml OP 10/15/16 Drops] Topiramate [Topamax] 100 mg PO BID 10/15/16 10/15/16 diazePAM [Diazepam] 10 mg PO PRN 10/15/16 10/15/16 HYDROcod/ACETAM 5/325 [[place] 5/325] 1 - 2 ea PO Q6H PRN #15 tablet 07/18/17 Triamcinolone 0.1% Oint [Kenalog 1 gm TOP BID #3 tube 07/18/17 0.1% Oint] diazePAM [Valium] 5 mg PO TID PRN #10 tablet 07/18/17 - Allergies Allergies/Adverse Reactions: Allergies Allergy/AdvReac Type Severity Reaction Status Date / Time fludrocortisone Allergy Unknown Hives Verified 07/01/18 22:12 amitriptyline Allergy Hives Verified 07/01/18 22:13 apple Allergy Unknown Verified 07/01/18 22:12 barley Allergy Unknown Verified 07/01/18 22:12 garlic Allergy Unknown Verified 07/01/18 22:12 milk Allergy Unknown Verified 07/01/18 22:12 milnacipran HCl * Allergy Rash Verified 07/01/18 22:12 [From Savella] oats Allergy Unknown Verified 07/01/18 22:12 onion Allergy Unknown Verified 07/01/18 22:12 orange Allergy Unknown Verified 07/01/18 22:12 peanut Allergy Unknown Verified 07/01/18 22:12 pineapple Allergy Unknown Verified 07/01/18 22:12 potato Allergy Unknown Verified 07/01/18 22:12 rice Allergy Unknown Verified 07/01/18 22:12 soy Allergy Unknown Verified 07/01/18 22:12 Sulfa (Sulfonamide Allergy Rash Verified 07/01/18 22:12 Antibiotics) sulfite Allergy Nausea Verified 07/01/18 22:12 tomato Allergy Unknown Verified 07/01/18 22:12 wheat Allergy Unknown Verified 07/01/18 22:12 eggs Allergy Unknown Uncoded 07/01/18 22:12 pepe Allergy Unknown Uncoded 07/01/18 22:12 - Social History Does the pt smoke?: No Smoking Status: Never smoker Does the pt drink ETOH?: No Does the pt have substance abuse?: No - Immunizations Immunizations are current?: Yes - POLST Patient has POLST: No PD ED PE NORMAL - Vitals Vital signs reviewed: Yes - General General: Alert and oriented X 3, No acute distress, Well developed/nourished - HEENT HEENT: PERRL, EOMI, Moist mucous membranes - Neck Neck: Supple, no meningeal sign - Cardiac Cardiac: RRR, No murmur, No gallop, No rub - Respiratory Respiratory: No respiratory distress, Clear bilaterally - Abdomen Abdomen: Soft, Non tender - Back Back: No spinal TTP - Derm Derm: Normal color, Warm and dry - Extremities Extremities: No tenderness to palpate, Normal ROM s pain, No edema - Neuro Neuro: Alert and oriented X 3, jewel setter 2-12 intact, No motor deficit, No sensory deficit, Normal speech Results - Vitals Vitals: Vital Signs - 24 hr 07/01/18 07/01/18 07/02/18 22:05 22:27 00:04 Temperature 37.2 C Heart Rate 105 H 86 71 Respiratory 22 16 18 Rate Blood Pressure 142/99 H 123/96 H 125/85 H O2 Saturation 98 98 98 07/02/18 07/02/18 00:58 01:07 Temperature 36.7 C Heart Rate 67 Respiratory 16 Rate Blood Pressure 141/85 H O2 Saturation 98 Oxygen O2 Source Room air - EKG (time done) No standard instances Rate: Rate (enter#) (79) Rhythm: NSR, LAE Muir: LAD Intervals: Normal VA QRS: LVH Ischemia: Normal ST segments Compare to prior EKG: Unchanged from prior EKG - Labs Labs: Laboratory Tests 07/01/18 07/01/18 23:30 23:30 WBC 7.2 RBC 4.39 Hgb 13.6 Hct 40.3 MCV 91.9 MCH 30.9 MCHC 33.6 RDW 13.5 Plt Count 307 MPV 8.1 Neut # (Auto) 4.7 Lymph # (Auto) 1.8 [place] # (Auto) 0.4 Eos # (Auto) 0.2 Baso # (Auto) 0.1 Absolute Nucleated RBC 0.00 Nucleated RBC % 0.1 Sodium 132 L Potassium 4.1 Chloride 102 Carbon Dioxide 26 Anion Gap 4.0 L BUN 21 H Creatinine 0.7 Estimated GFR (MDRD) 89 Glucose 112 H Calcium 8.9 - Rads (name of study) RLE US doppler Radiology: Prelim report reviewed, See rad report PD MEDICAL DECISION MAKING - ED course Complexity details: reviewed old records, reviewed results, re-evaluated patient, considered differential, d/w patient ED course: Given dose of propranolol in ED with improvement in blood pressure to 140s/80s Departure - Departure Disposition: 01 Home, Self Care Clinical Impression: Leg pain, bilateral Hypertension Qualifiers: Hypertension type: essential hypertension Qualified Code(s): I10 - Essential (primary) hypertension Chest pain Qualifiers: Chest pain type: unspecified Qualified Code(s): R07.9 - Chest pain, unspecified Condition: Good Instructions: ED Chest Pain Atypical Unkn Cause, ED HTN Established Follow-Up: Mariaa Dixon ARNP [Primary Care Provider] - Discharge Date/Time: 07/02/18 01:28
[2018-07-01] MEDS ORDERED: PROPRANOLOL 10 MG TABLET PO STA (23:07)
[2018-07-01 23:35] LABS: BASOPHILS # (AUTO) 0.1 10^3/uL (0.0-0.1); EOSINOPHILS # (AUTO) 0.2 10^3/uL (0.0-0.7); EOSINOPHILS % (AUTO) 2.2 %; HGB - HEMOGLOBIN 13.6 g/dL (12.0-16.0); LYMPHOCYTES # (AUTO) 1.8 10^3/uL (1.5-3.5); LYMPHOCYTES % (AUTO) 25.7 %; MEAN CORPUSCULAR HEMOGLOBIN 30.9 pg (27.0-31.0); MEAN CORPUSCULAR HGB CONC 33.6 g/dL (32.0-36.0); MEAN CORPUSCULAR VOLUME 91.9 fL (81.0-99.0); MEAN PLATELET VOLUME 8.1 fL (7.9-10.8); MONOCYTES # (AUTO) 0.4 10^3/uL (0.0-1.0); NEUTROPHILS # (AUTO) 4.7 10^3/uL (1.5-6.6); NEUTROPHILS % (AUTO) 66.1 %; PLT - PLATELET COUNT 307 10^3/uL (130-450); RED BLOOD COUNT 4.39 10^6/uL (4.20-5.40); RED CELL DISTRIBUTION WIDTH 13.5 % (12.0-15.0); WHITE BLOOD COUNT 7.2 x10^3/uL (4.8-10.8)
[2018-07-01 23:43] LABS: CALCIUM 8.9 mg/dL (8.5-10.3); CREATININE 0.7 mg/dL (0.4-1.0)
--- NOTE | 2018-07-02 00:36 | Ultrasound Report ---
Reason: RLE pain, no injury Procedure Date: 07/01/2018 Accession Number: [id number] / [id number] Procedure: US - Duplex Ext Veins Right CPT Code: FULL RESULT: EXAM: RIGHT LOWER EXTREMITY VENOUS ULTRASOUND EXAM DATE: 07/01/2018 11:59 PM. CLINICAL HISTORY: RLE pain, no injury. COMPARISON: DUPLEX EXT VEINS RIGHT 07/25/2015 3:49 PM. TECHNIQUE: Real-time sonographic vascular imaging was performed by the service center manager through the lower extremity utilizing both color-flow and Doppler spectral analysis. Multiple used equipment sales representative static images were saved for review. FINDINGS: Common Femoral Vein (CFV): Normal. CFV-GSV Junction: Normal. Profunda Femoral Vein (PFV): Normal. Femoral Vein (FV) Prox: Normal. Femoral Vein (FV) Mid: Normal. Femoral Vein (FV) Dist: Normal. Popliteal Vein: Normal. Posterior Tibial Veins: Normal. Peroneal Veins: Normal. Other: None. IMPRESSION: No evidence for deep venous thrombosis. RADIA
[2018-07-02 00:59] VITALS: BP 141/85
== END 2018-07-02 01:28 | disposition home or self-care (01) ==
LOC: ED 22:03
DX: I10 Essential (primary) hypertension (principal); M79.605 Pain in left leg; M79.604 Pain in right leg; R07.9 Chest pain, unspecified; R94.31 Abnormal electrocardiogram [ECG] [EKG]
CPT/HCPCS: 36415; 80048; 85025; 93005; 93971; 99283; 99284; A9270

== ENCOUNTER 2018-07-17 13:43 | Emergency (ER) | payer MEDICAID ==
[2018-07-17 13:58] VITALS: BP 132/90
== END 2018-07-17 14:17 | disposition left against medical advice (07) ==
LOC: ED 13:43
DX: T78.49XA Other allergy, initial encounter (principal); X58.XXXA Exposure to other specified factors, initial encounter; R22.9 Localized swelling, mass and lump, unspecified; Z53.21 Procedure and treatment not carried out due to patient leaving prior to being seen by health care provider

== ENCOUNTER 2018-09-26 11:05 | Emergency (ER) | payer MEDICAID ==
[2018-09-26 11:15] VITALS: BP 148/84
--- NOTE | 2018-09-26 12:53 | ED Physician Documentation ---
PD HPI LOWER EXT INJURY - Stated complaint Stated Complaint: LEG PX - Chief complaint Chief Complaint: Ext Problem - History obtained from History obtained from: Patient, Caregiver - History of Present Illness PD HPI LOW EXT INJURY LOCATION: Right, Toe Type of injury: Other (cyst) Timing - duration: Weeks (several) Timing - details: Still present Worsened by: Palpating Associated symptoms: Swelling Similar symptoms before: Diagnosis (ganglionic cyst) - Additional information Additional information: The patient is a 47-year-old female with chronic pain syndrome and dementia, who presents with pain in her right great toe. This time it has been progressing over the past several weeks. She has a history of similar symptoms, diagnosed as ganglionic cyst which has been drained in the past. This is the sixth recurrence. Review of Systems Constitutional: denies: Fever Musculoskeletal: reports: Extremity pain (right great toe) Neurologic: denies: Focal weakness, Numbness PD PAST MEDICAL HISTORY - Past Medical History Cardiovascular: Other Respiratory: None Neuro: Dementia Endocrine/Autoimmune: None GI: Other TOBACCO DRUMMER: None : None Psych: None Musculoskeletal: Osteoarthritis, Fibromyalgia, Fatigue Derm: None - Past Surgical History Past Surgical History: No General: Colonoscopy - Present Medications Home Medications: Ambulatory Orders Medication Instructions Recorded Confirmed diphenhydrAMINE [Benadryl] 25 mg PO .FREQ 08/13/15 07/18/17 Cetirizine [ZyrTEC] 10 mg PO DAILY 10/15/16 Doxycycline Monohydrate [Oracea] 20 mg PO DAILY 10/15/16 10/15/16 EPINEPHrine [Epipen 2-Kirk] 0.3 mg IM PRN PRN 10/15/16 Ketotifen Fumarate [Allergy Eye 10 ml OP 10/15/16 Drops] Topiramate [Topamax] 100 mg PO BID 10/15/16 10/15/16 diazePAM [Diazepam] 10 mg PO PRN 10/15/16 10/15/16 HYDROcod/ACETAM 5/325 [[place] 5/325] 1 - 2 ea PO Q6H PRN #15 tablet 07/18/17 Triamcinolone 0.1% Oint [Kenalog 1 gm TOP BID #3 tube 07/18/17 0.1% Oint] diazePAM [Valium] 5 mg PO TID PRN #10 tablet 07/18/17 - Allergies Allergies/Adverse Reactions: Allergies Allergy/AdvReac Type Severity Reaction Status Date / Time fludrocortisone Allergy Unknown Hives Verified 09/26/18 11:15 amitriptyline Allergy Hives Verified 09/26/18 11:15 apple Allergy Unknown Verified 09/26/18 11:15 barley Allergy Unknown Verified 09/26/18 11:15 garlic Allergy Unknown Verified 09/26/18 11:15 milk Allergy Unknown Verified 09/26/18 11:15 milnacipran HCl * Allergy Rash Verified 09/26/18 11:15 [From Savella] oats Allergy Unknown Verified 09/26/18 11:15 onion Allergy Unknown Verified 09/26/18 11:15 orange Allergy Unknown Verified 09/26/18 11:15 peanut Allergy Unknown Verified 09/26/18 11:15 pineapple Allergy Unknown Verified 09/26/18 11:15 potato Allergy Unknown Verified 09/26/18 11:15 rice Allergy Unknown Verified 09/26/18 11:15 soy Allergy Unknown Verified 09/26/18 11:15 Sulfa (Sulfonamide Allergy Rash Verified 09/26/18 11:15 Antibiotics) sulfite Allergy Nausea Verified 09/26/18 11:15 tomato Allergy Unknown Verified 09/26/18 11:15 wheat Allergy Unknown Verified 09/26/18 11:15 eggs Allergy Unknown Uncoded 07/17/18 13:59 pepe Allergy Unknown Uncoded 07/17/18 13:59 - Social History Does the pt smoke?: No Smoking Status: Never smoker Does the pt drink ETOH?: No Does the pt have substance abuse?: No - Immunizations Immunizations are current?: Yes - POLST Patient has POLST: No PD ED PE NORMAL - Vitals Vital signs reviewed: Yes (Borderline systolic hypertension initially.) - General General: Alert and oriented X 3, Other (Appears chronically debilitated.) - HEENT HEENT: Atraumatic - Cardiac Cardiac: RRR - Respiratory Respiratory: No respiratory distress - Derm Derm: No rash - Extremities Extremities: No edema, No calf tenderness / cord, Other (There is a firm cystic structure at the dorsal aspect of the IP joint of the right great toe. There is no surrounding erythema or lymphangitic streaking. Distal neurovascular is intact.) - Neuro Neuro: Alert and oriented X 3, Normal speech Results - Vitals Vitals: Oxygen O2 Source Room air Procedures - General procedure General procedure: Under sterile conditions and after local anesthesia with 1% lidocaine, the cyst was opened using an #11 blade. Clear viscous fluid with the consistency of synovial fluid was expressed. PD MEDICAL DECISION MAKING - ED course Complexity details: re-evaluated patient, considered differential, d/w patient ED course: The patient presented with pain in her right great toe, and was found to have a ganglion cyst. The cyst was drained, and the patient's pain significantly improved. I discussed with her and her caregiver appropriate care of the wound site, outpatient follow-up, as well as potentially worrisome signs or symptoms that should prompt reevaluation in the emergency department. Departure - Departure Disposition: 01 Home, Self Care Clinical Impression: Ganglion cyst Condition: Stable Instructions: ED Cyst Ganglion Follow-Up: Lexx Luu MD [Credentialed Staff Provider] - Comments: Keep your right foot elevated as much the time as possible. Wash your feet daily with warm soapy water, and apply antibiotic ointment and new Band-Aid to the great toe. Follow-up with your primary physician next week as scheduled. Return to the emergency department if you develop increasing pain, any sign of infection, or otherwise worsening symptoms. Discharge Date/Time: 09/26/18 13:07
== END 2018-09-26 13:07 | disposition home or self-care (01) ==
LOC: ED 11:05
DX: M67.48 Ganglion, other site (principal); F03.90 Unspecified dementia, unspecified severity, without behavioral disturbance, psychotic disturbance, mood disturbance, and anxiety
CPT/HCPCS: 10060; 99283

== ENCOUNTER 2019-09-19 10:04 | Emergency (ER) | payer MEDICAID ==
--- NOTE | 2019-09-19 10:41 | ED Physician Documentation ---
History of Present Illness - Stated complaint Stated Complaint: BUMP BEHIND R EAR, - Chief complaint Chief Complaint: General - History obtained from History obtained from: Patient - History of Present Illness Timing: How many days ago (2) - Additonal information Additional information: 48-year-old female with a history of chronic fatigue syndrome and pots has developed some pain behind her right ear. She states this is been keeping her awake for the last 2 nights anytime she rolls over on that side she awakens with acute pain and she has not had other specific symptoms related to the area. She does not have a cough or ear pain she does have some problems with the skin of her years but chronically. She has not had mastoiditis previously. She feels t hat there is a mass or lump behind her ear on the right side. She has been staying inside isolated from everyone with the coronavirus and indicates she has only put on a mask about once or twice per month. She has some other things she is concerned about. She does seem to have stubbed her right great toe about a month ago it still hurting a bit she is able to walk on it she also has an area on her back on the left side that for the past 6 months has had a scab that has come off and bled. She has not gone in to see the expert medical writer with this as yet. 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 : None Psych: None Musculoskeletal: Osteoarthritis, Fibromyalgia, Fatigue Derm: None - Past Surgical History Past Surgical History: No General: Colonoscopy - Present Medications Home Medications: Ambulatory Orders Medication Instructions Recorded Confirmed diphenhydrAMINE [Benadryl] 25 mg PO .FREQ 08/13/15 07/18/17 Cetirizine [ZyrTEC] 10 mg PO DAILY 10/15/16 Doxycycline Monohydrate [Oracea] 20 mg PO DAILY 10/15/16 10/15/16 EPINEPHrine [Epipen 2-Kirk] 0.3 mg IM PRN PRN 10/15/16 Ketotifen Fumarate [Allergy Eye 10 ml OP 10/15/16 Drops] Topiramate [Topamax] 100 mg PO BID 10/15/16 10/15/16 diazePAM [Diazepam] 10 mg PO PRN 10/15/16 10/15/16 HYDROcod/ACETAM 5/325 [[place] 5/325] 1 - 2 ea PO Q6H PRN #15 tablet 07/18/17 Triamcinolone 0.1% Oint [Kenalog 1 gm TOP BID #3 tube 07/18/17 0.1% Oint] diazePAM [Valium] 5 mg PO TID PRN #10 tablet 07/18/17 - Allergies Allergies/Adverse Reactions: Allergies Allergy/AdvReac Type Severity Reaction Status Date / Time fludrocortisone Allergy Unknown Hives Verified 09/19/19 10:12 amitriptyline Allergy Hives Verified 09/19/19 10:12 apple Allergy Unknown Verified 09/19/19 10:12 barley Allergy Unknown Verified 09/19/19 10:12 garlic Allergy Unknown Verified 09/19/19 10:12 influenza virus vaccine, Allergy Unknown Verified 09/19/19 10:12 specific milk Allergy Unknown Verified 09/19/19 10:12 milnacipran HCl * Allergy Rash Verified 09/19/19 10:12 [From Savella] oats Allergy Unknown Verified 09/19/19 10:12 onion Allergy Unknown Verified 09/19/19 10:12 orange Allergy Unknown Verified 09/19/19 10:12 peanut Allergy Unknown Verified 09/19/19 10:12 pineapple Allergy Unknown Verified 09/19/19 10:12 potato Allergy Unknown Verified 09/19/19 10:12 rice Allergy Unknown Verified 09/19/19 10:12 soy Allergy Unknown Verified 09/19/19 10:12 Sulfa (Sulfonamide Allergy Rash Verified 09/19/19 10:12 Antibiotics) sulfite Allergy Nausea Verified 09/19/19 10:12 tomato Allergy Unknown Verified 09/19/19 10:12 wheat Allergy Unknown Verified 09/19/19 10:12 eggs Allergy Unknown Uncoded 07/17/18 13:59 pepe Allergy Unknown Uncoded 07/17/18 13:59 - Social History Does the pt smoke?: No Smoking Status: Never smoker Does the pt drink ETOH?: No Does the pt have substance abuse?: No - Immunizations Immunizations are current?: Yes - POLST Patient has POLST: No PD ED PE NORMAL - Vitals Vital signs reviewed: Yes (normal ) - General General: No acute distress, Well developed/nourished - HEENT HEENT: Atraumatic, PERRL, EOMI, Ears normal, Moist mucous membranes, Other (The left mastoid is tender. There is no overlying erythema or swelling that I can appreicate. The area is tender enough that I am not able to leave my finger on the area long enough to examine it adequately before she pulls away. ) - Neck Neck: Supple, no meningeal sign, No bony TTP, No adenopathy - Cardiac Cardiac: RRR, No murmur - Respiratory Respiratory: No respiratory distress, Clear bilaterally - Abdomen Abdomen: Soft, Non tender - Back Back: No CVA TTP, No spinal TTP - Derm Derm: Normal color, Warm and dry, Other (There is an area over the left shoulder posteriorly about 1.5cm round that appears like an escar over an abrasion without underlying mass..There is no surrounding erythema or swelling. ) - Extremities Extremities: No deformity, No edema - Neuro Neuro: Alert and oriented X 3, interior design consultant 2-12 intact, No motor deficit, No sensory deficit, Normal speech Eye Opening: Spontaneous Motor: Obeys Commands Verbal: Oriented GCS Score: 15 - Psych Psych: Normal mood, Normal affect Results - Vitals Vitals: Vital Signs - 24 hr 09/19/19 09/19/19 09/19/19 10:12 10:17 11:54 Temperature 36.6 C Heart Rate 84 88 Respiratory 18 16 Rate Blood Pressure 149/83 H 140/86 H O2 Saturation 100 99 Oxygen O2 Source Room air - Rads (name of study) CT Radiology: Prelim report reviewed (Impression: 1. Question sebaceous cyst, immediately posterior to the right ear. Otherwise unremarkable temporal bone protocol CT with no evidence of acute mastoiditis or external ear or middle ear pathology.), EMP read indepedently, See rad report u/s Radiology: Prelim report reviewed (Impression: The palpable, painful lump behind the right ear noted by the patient corresponds to a small benign-appearing superficial lymph node.), EMP read indepedently, See rad report PD MEDICAL DECISION MAKING - ED course Complexity details: reviewed old records, reviewed results, re-evaluated patient, considered differential, d/w patient ED course: 48-year-old female with various complaints the the reason that she came into the emergency department today is for some pain behind the right ear. Her mastoid is tender and she is not able to allow me to examine it adequately. There is no surrounding erythema or swelling that I am able to appreciate. The area does appear tender. The left mastoid is not tender there is no obvious inflammation to the ear canal or the ear itself.A CT scan of the mastoids is obtained to further delineate. Her other symptoms including a stubbed right toe and an area on her back that will not heal appear likely benign. I have asked the patient to follow-up with dermatology for evaluation of the area on her shoulder as this certainly could be a skin cancer. The toe appears to be healing well and I do not think x-rays will help in any way. The patient has significant tenderness to the area behind the canal the CT demonstrates the possibility of a small mass and this is elucidated further with ultrasound demonstrating benign-appearing lymph node. Departure - Departure Disposition: 01 Home, Self Care Clinical Impression: Lymphadenitis Condition: Stable Instructions: ED Lymphangitis Follow-Up: [facility] [Provider Group] Comments: Today the primary complaint you came in for appears to be a lymph node behind your right ear. This should resolve without specific treatment. A warm compress may be helpful for comfort. The expectation is the tenderness resolves over the next 2 to 5 days. We also discussed the toe use stubbed and the expectation is that pain should resolve over the next several months. We discussed a small sore on your left shoulder and my recommendation is to have the expert medical writer take a look at this as it has already been 6 months and it is not healed.
--- NOTE | 2019-09-19 11:25 | CT Report ---
PROCEDURE: IAC'S WO INDICATIONS: tender mastoid on the right COMPARISON: None TECHNIQUE: Noncontrast 0.6 mm thick direct axial and coronal sections acquired through each temporal bone separa tely. For radiation dose reduction, the following was used: automated exposure control, adjustment of mA and/or kV according to patient size. FINDINGS: Image quality: Excellent. RIGHT: External auditory canal: Canal has a normal appearance. Middle ear: The middle ear structures, including the ossicles and tympanic membrane, appear normal. No abnormal fluid or soft tissue density. Inner ear: Inner ear is normally formed and appears unremarkable. Facial nerve appears normal throu ghout is course. Mastoids: Mastoid air cells are clear. Miscellaneous: There is a marker that has been placed immediately posterior to the ear. Corresponding to this marker is a approximately 6 mm nodular density in the very superficial subcutaneous tissues. LEFT: External auditory canal: Canal has a normal appearance. Middle ear: The middle ear structures, including the ossicles and tympanic membrane, appear normal. No abnormal fluid or soft tissue density. Inner ear: Inner ear is normally formed and appears unremarkable. Facial nerve appears normal throu ghout its course. Mastoids: Mastoid air cells are clear. MISCELLANEOUS: Visualized surrounding bones appear unremarkable. Visualized intracranial structures , including the cerebellopontine angle cisterns, appear normal. IMPRESSION: 1. Question sebaceous cyst, immediately posterior to the right ear. 2. Otherwise unremarkable temporal bone protocol CT with no evidence of acute mastoiditis or external ear or middle ear pathology. Above discussed with LUCINA GILMORE at the time of dictation. Apparently, the patient is exquisitely tender, and is quite difficult to evaluate clinically. A superficial targeted ultrasound may be help ful to identify whether there is a infected sebaceous cyst corresponding to the patient's pain sympto matology. Reviewed by: Bebeto Mahajan MD on 09/19/2019 10:23 AM [facility] Approved by: Bebeto Mahajan MD on 09/19/2019 10:23 AM [facility] Station ID: [id number]
--- NOTE | 2019-09-19 12:57 | Ultrasound Report ---
PROCEDURE: Head or Neck Soft Tissue INDICATIONS: right mastoid tenderness/mass TECHNIQUE: Real time scanning was performed of the neck region of interest, with image documentation . COMPARISON: CT IACs dated 09/19/2019. FINDINGS: The nodular density seen immediately posterior to the right ear is a small benign-appearing lymph node with a fatty hilum measuring 0.8 x 0.3 x 0.5 cm. This corresponds to the palpable lump fe lt by the patient, and corresponds to the area of patient pain symptomatology. IMPRESSION: The palpable, painful lump behind the right ear noted by the patient corresponds to a small benign-ap pearing superficial lymph node. Reviewed by: Bebeto Mahajan MD on 09/19/2019 11:55 AM [facility] Approved by: Bebeto Mahajan MD on 09/19/2019 11:55 AM [facility] Station ID: [id number]
[2019-09-19 13:28] VITALS: BP 129/85
== END 2019-09-19 13:24 | disposition home or self-care (01) ==
LOC: ED 10:04
DX: I88.9 Nonspecific lymphadenitis, unspecified (principal); M79.674 Pain in right toe(s); R23.4 Changes in skin texture; R53.82 Chronic fatigue, unspecified
CPT/HCPCS: 70480; 76536; 99284

== ENCOUNTER 2020-02-24 14:49 | Outpatient (CLI) | payer MEDICAID ==
--- NOTE | 2020-02-24 15:18 | XRAY Report ---
PROCEDURE: Toe(s) RT INDICATIONS: GANGLION CYST ON R GREAT TOE TECHNIQUE: 3 views of the right toe(s) acquired. COMPARISON: None FINDINGS: Bones: No fractures or dislocations. No suspicious bony lesions. Soft tissues: No suspicious soft tissue densities. IMPRESSION: Normal right toes Reviewed by: Emery Ching on 02/24/2020 3:17 PM PST Approved by: Emery Ching on 02/24/2020 3:17 PM PST Station ID: [id number]
== END 2020-02-24 23:59 | disposition home or self-care (01) ==
LOC: DI.N 14:49
PROVIDERS: ATTEND Orthopaedic Surgery
DX: M67.471 Ganglion, right ankle and foot (principal)

== ENCOUNTER 2020-03-16 11:05 | Outpatient (CLI) | payer MEDICAID ==
[2020-03-16 15:17] LABS: BASOPHILS % (AUTO) 0.7 %; EOSINOPHILS # (AUTO) 0.1 10^3/uL (0.0-0.7); EOSINOPHILS % (AUTO) 2.6 %; HGB - HEMOGLOBIN 13.9 g/dL (12.0-16.0); LYMPHOCYTES # (AUTO) 1.6 10^3/uL (1.5-3.5); LYMPHOCYTES % (AUTO) 29.7 %; MEAN CORPUSCULAR HEMOGLOBIN 30.8 pg (27.0-31.0); MEAN CORPUSCULAR HGB CONC 32.6 g/dL (32.0-36.0); MEAN CORPUSCULAR VOLUME 94.2 fL (81.0-99.0); MEAN PLATELET VOLUME 10.7 fL (7.9-10.8); MONOCYTES # (AUTO) 0.3 10^3/uL (0.0-1.0); MONOCYTES % (AUTO) 5.1 %; NEUTROPHILS # (AUTO) 3.4 10^3/uL (1.5-6.6); NEUTROPHILS % (AUTO) 61.7 %; PLT - PLATELET COUNT 333 10^3/uL (130-450); RED BLOOD COUNT 4.52 10^6/uL (4.20-5.40); RED CELL DISTRIBUTION WIDTH 13.5 % (12.0-15.0); WHITE BLOOD COUNT 5.5 x10^3/uL (4.8-10.8)
[2020-03-16 15:24] LABS: HEMOGLOBIN A1c% 5.2 % (4.27-6.07)
[2020-03-16 15:39] LABS: % IRON SATURATION 27 % (20-50); ALBUMIN/GLOBULIN RATIO 1.2 (1.0-2.2); ALKALINE PHOSPHATASE 77 IU/L (42-121); ALT ALANINE AMINOTRANSFERASE 18 IU/L (10-60); AST ASPARTATE AMINOTRANSFERASE 18 IU/L (10-42); BILIRUBIN,TOTAL 0.4 mg/dL (0.2-1.0); BUN - BLOOD UREA NITROGEN 14 mg/dL (6-20); CALCIUM 9.3 mg/dL (8.5-10.3); CARBON DIOXIDE - CO2 24 mmol/L (21-32); CHLORIDE 107 mmol/L (101-111); CHOL/HDL RATIO 3.7 (<4.4); CHOLESTEROL 245 mg/dL; CREATININE 0.5 mg/dL (0.4-1.0); GLUCOSE 103 mg/dL (70-100); HDL CHOLESTEROL 66 mg/dL; IRON 97 ug/dL (28-170); LDL CHOLESTEROL,CALCULATED 147 mg/dL; LDL/HDL RATIO 2.2 (<4.4); SODIUM 139 mmol/L (135-145); TOTAL IRON BINDING CAPACITY 358 ug/dL (250-450); TOTAL PROTEIN 7.4 g/dL (6.7-8.2); TRANSFERRIN 256 mg/dL (192-382); VLDL CHOLESTEROL 32 mg/dL
[2020-03-16 15:52] LABS: FERRITIN 36.1 ng/mL (11.0-306.8)
== END 2020-03-16 11:06 | disposition home or self-care (01) ==
LOC: LAB.S 11:05
PROVIDERS: ATTEND Family Medicine
DX: E61.1 Iron deficiency (principal); E55.9 Vitamin D deficiency, unspecified; H93.299 Other abnormal auditory perceptions, unspecified ear; H53.149 Visual discomfort, unspecified; L30.9 Dermatitis, unspecified; I73.00 Raynaud's syndrome without gangrene; E78.5 Hyperlipidemia, unspecified; K21.9 Gastro-esophageal reflux disease without esophagitis; G43.709 Chronic migraine without aura, not intractable, without status migrainosus; M79.7 Fibromyalgia; R53.83 Other fatigue; K58.9 Irritable bowel syndrome, unspecified; E66.9 Obesity, unspecified; F32.9 Major depressive disorder, single episode, unspecified; F41.9 Anxiety disorder, unspecified
CPT/HCPCS: 36415; 80053; 80061; 82306; 82607; 82728; 83036; 83540; 83721; 84443; 84466; 85025

== ENCOUNTER 2020-03-31 10:06 | Outpatient (CLI) | payer MEDICAID ==
[2020-03-31 11:49] LABS: BASOPHILS # (AUTO) 0.1 10^3/uL (0.0-0.1); EOSINOPHILS # (AUTO) 0.2 10^3/uL (0.0-0.7); HGB - HEMOGLOBIN 13.9 g/dL (12.0-16.0); LYMPHOCYTES # (AUTO) 1.9 10^3/uL (1.5-3.5); LYMPHOCYTES % (AUTO) 29.8 %; MEAN CORPUSCULAR HEMOGLOBIN 31.2 pg (27.0-31.0); MEAN CORPUSCULAR HGB CONC 33.6 g/dL (32.0-36.0); MEAN CORPUSCULAR VOLUME 92.8 fL (81.0-99.0); MEAN PLATELET VOLUME 10.8 fL (7.9-10.8); MONOCYTES # (AUTO) 0.4 10^3/uL (0.0-1.0); MONOCYTES % (AUTO) 6.9 %; NEUTROPHILS # (AUTO) 3.7 10^3/uL (1.5-6.6); PLT - PLATELET COUNT 309 10^3/uL (130-450); RED BLOOD COUNT 4.46 10^6/uL (4.20-5.40); WHITE BLOOD COUNT 6.3 x10^3/uL (4.8-10.8)
[2020-03-31 12:31] LABS: CRP - C-REACTIVE PROTEIN 1.4 mg/dL (0-1.0)
[2020-03-31 12:42] LABS: URIC ACID 4.3 mg/dL (2.6-7.2)
== END 2020-03-31 23:59 | disposition home or self-care (01) ==
LOC: LAB.WCP 10:06
PROVIDERS: ATTEND Family Medicine
DX: M79.642 Pain in left hand (principal)
CPT/HCPCS: 36415; 84550; 85025; 85651; 86140

== ENCOUNTER 2020-03-31 10:08 | Outpatient (CLI) | payer MEDICAID ==
--- NOTE | 2020-03-31 10:56 | XRAY Report ---
PROCEDURE: Hand 2 View LT INDICATIONS: LEFT HAND PAIN TECHNIQUE: 2 views of the hand acquired. COMPARISON: None. FINDINGS: Bones: No acute fractures or dislocations. No suspicious bony lesions. Soft tissues: No suspicious soft tissue calcifications. IMPRESSION: No acute osseous abnormality. If symptoms persist with conservative management, further evaluation wi th CT or MRI may be obtained. Reviewed by: Heri Stanley MD on 03/31/2020 10:55 AM [facility] Approved by: Heri Stanley MD on 03/31/2020 10:55 AM [facility] Station ID: [id number]
== END 2020-03-31 23:59 | disposition home or self-care (01) ==
LOC: DI.WCP 10:08
PROVIDERS: ATTEND Family Medicine
DX: M79.642 Pain in left hand (principal)

== ENCOUNTER 2020-04-18 08:00 | Outpatient (CLI) | payer MEDICAID ==
[2020-04-18 10:28] LABS: BASOPHILS % (AUTO) 0.7 %; EOSINOPHILS # (AUTO) 0.2 10^3/uL (0.0-0.7); EOSINOPHILS % (AUTO) 3.3 %; HGB - HEMOGLOBIN 14.5 g/dL (12.0-16.0); LYMPHOCYTES # (AUTO) 1.9 10^3/uL (1.5-3.5); LYMPHOCYTES % (AUTO) 30.4 %; MEAN CORPUSCULAR HGB CONC 32.5 g/dL (32.0-36.0); MEAN CORPUSCULAR VOLUME 95.3 fL (81.0-99.0); MEAN PLATELET VOLUME 9.9 fL (7.9-10.8); MONOCYTES # (AUTO) 0.3 10^3/uL (0.0-1.0); MONOCYTES % (AUTO) 5.1 %; NEUTROPHILS # (AUTO) 3.7 10^3/uL (1.5-6.6); NEUTROPHILS % (AUTO) 60.3 %; PLT - PLATELET COUNT 310 10^3/uL (130-450); RED BLOOD COUNT 4.68 10^6/uL (4.20-5.40); RED CELL DISTRIBUTION WIDTH 12.9 % (12.0-15.0); WHITE BLOOD COUNT 6.1 x10^3/uL (4.8-10.8)
[2020-04-18 15:11] LABS: RHEUMATOID FACTOR NEGATIVE (Negative)
[2020-04-20 12:22] LABS: ANA SCREEN NEGATIVE (NEGATIVE)
== END 2020-04-18 23:59 | disposition home or self-care (01) ==
LOC: LAB 08:00
DX: D89.89 Other specified disorders involving the immune mechanism, not elsewhere classified (principal); R53.82 Chronic fatigue, unspecified
CPT/HCPCS: 36415; 85025; 85651; 86038; 86140; 86430

== ENCOUNTER 2021-02-19 12:51 | Emergency (ER) | payer MEDICAID ==
--- NOTE | 2021-02-19 13:23 | ED Physician Documentation ---
PD HPI LOWER EXT INJURY - Stated complaint Stated Complaint: GLF/LT HIP PX - Chief complaint Chief Complaint: Trauma Ext - History obtained from History obtained from: Patient - Additional information Additional information: 50-year-old woman with POTS and chronic dizziness who has frequent falls fell 2 days ago and landed on her left side. Was at her house. She has severe left hip and knee pain. She had some pain of the left ankle and did hit her head but those are no longer bothering her. She declines pain medication. 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 : None Psych: None Musculoskeletal: Osteoarthritis, Fibromyalgia, Fatigue Derm: None - Past Surgical History Past Surgical History: No General: Colonoscopy - Present Medications Home Medications: Ambulatory Orders Medication Instructions Recorded Confirmed diphenhydrAMINE [Benadryl] 25 mg PO .FREQ 08/13/15 07/18/17 Cetirizine [ZyrTEC] 10 mg PO DAILY 10/15/16 Doxycycline Monohydrate [Oracea] 20 mg PO DAILY 10/15/16 10/15/16 EPINEPHrine [Epipen 2-Kirk] 0.3 mg IM PRN PRN 10/15/16 Ketotifen Fumarate [Allergy Eye 10 ml OP 10/15/16 Drops] Topiramate [Topamax] 100 mg PO BID 10/15/16 10/15/16 diazePAM [Diazepam] 10 mg PO PRN 10/15/16 10/15/16 HYDROcod/ACETAM 5/325 [[place] 5/325] 1 - 2 ea PO Q6H PRN #15 tablet 07/18/17 Triamcinolone 0.1% Oint [Kenalog 1 gm TOP BID #3 tube 07/18/17 0.1% Oint] diazePAM [Valium] 5 mg PO TID PRN #10 tablet 07/18/17 - Allergies Allergies/Adverse Reactions: Allergies Allergy/AdvReac Type Severity Reaction Status Date / Time fludrocortisone Allergy Unknown Hives Verified 02/19/21 13:01 amitriptyline Allergy Hives Verified 02/19/21 13:01 apple Allergy Unknown Verified 02/19/21 13:01 barley Allergy Unknown Verified 02/19/21 13:01 garlic Allergy Unknown Verified 02/19/21 13:01 influenza virus vaccine, Allergy Unknown Verified 02/19/21 13:01 specific milk Allergy Unknown Verified 02/19/21 13:01 milnacipran HCl * Allergy Rash Verified 02/19/21 13:01 [From Savella] oats Allergy Unknown Verified 02/19/21 13:01 onion Allergy Unknown Verified 02/19/21 13:01 orange Allergy Unknown Verified 02/19/21 13:01 peanut Allergy Unknown Verified 02/19/21 13:01 pineapple Allergy Unknown Verified 02/19/21 13:01 potato Allergy Unknown Verified 02/19/21 13:01 rice Allergy Unknown Verified 02/19/21 13:01 soy Allergy Unknown Verified 02/19/21 13:01 Sulfa (Sulfonamide Allergy Rash Verified 02/19/21 13:01 Antibiotics) sulfite Allergy Nausea Verified 02/19/21 13:01 tomato Allergy Unknown Verified 02/19/21 13:01 wheat Allergy Unknown Verified 02/19/21 13:01 eggs Allergy Unknown Uncoded 02/19/21 13:01 pepe Allergy Unknown Uncoded 02/19/21 13:01 - Social History Does the pt smoke?: No Smoking Status: Never smoker Does the pt drink ETOH?: No Does the pt have substance abuse?: No - Immunizations Immunizations are current?: Yes - POLST Patient has POLST: No PD ED PE NORMAL - Vitals Vital signs reviewed: Yes - General General: Alert and oriented X 3, No acute distress - HEENT HEENT: PERRL, EOMI - Neck Neck: Supple, no meningeal sign, No bony TTP - Extremities Extremities: Other (The left knee is diffusely tender with a small bruise anteriorly that she is says is actually from a prior fall. And. Passive range of motion is relatively painless. The left hip is quite tender laterally, but only mild pain with internal and external rotation.) - Neuro Neuro: Alert and oriented X 3, Normal speech Results - Vitals Vitals: Vital Signs - 24 hr 02/19/21 02/19/21 12:57 14:24 Temperature 36.1 C L Heart Rate 73 Respiratory 16 Rate Blood Pressure 148/81 H 151/95 H O2 Saturation 97 Oxygen O2 Source Room air - Rads (name of study) X-rays of the left knee and hip showed some degenerative change but no acute findings. Radiology: EMP read contemporaneously PD MEDICAL DECISION MAKING - ED course ED course: 50-year-old woman a few days after a fall on the left hip and knee with pain there. Declined pain medication. Relevant x-rays negative. No evidence of ligamentous injury. While here developed her typical migraine, throbbing with photophobia. Also she requested medication for her blood pressure. She does take as needed propranolol at home and this was administered along with Toradol and Reglan noting that it had worked before for her when Dr. Bautista saw her for a headache in 2016. Departure - Departure Disposition: 01 Home, Self Care Clinical Impression: Contusion of left hip Qualifiers: Encounter type: initial encounter Qualified Code(s): S70.02XA - Contusion of left hip, initial encounter Left knee sprain Qualifiers: Encounter type: initial encounter Involved ligament of knee: unspecified ligament Qualified Code(s): S83.92XA - Sprain of unspecified site of left knee, initial encounter Condition: Stable Record reviewed to determine appropriate education?: Yes Instructions: ED Sprain Knee Comments: Follow-up with your doctor in a week if not improved, return for new or worsening symptoms.
[2021-02-19 14:24] VITALS: BP 151/95
--- NOTE | 2021-02-19 14:34 | XRAY Report ---
PROCEDURE: Hip w/Pelvis 2-3V LT INDICATIONS: hip/knee inj TECHNIQUE: AP pelvis with lateral view(s) of the left hip(s). COMPARISON: Correlation is made with the accompanying knee plain films, 02/11/2021. FINDINGS: This study is limited by body habitus. Bones: No fractures or dislocations. Pelvic ring appears intact. No suspicious bony lesions. There is moderate superior joint space narrowing seen involving both hips. There is associated remode ling change, with subchondral sclerosis and osteophyte formation. Soft tissues: The visualized bowel gas pattern is normal. No suspicious soft tissue calcifications. Note is made of pelvic phleboliths. IMPRESSION: Moderate bilateral hip degenerative change, without an acute abnormality seen by plain f ilm. If it would be helpful for clinical management decision making, please consider a dedicated hip MRI f or further evaluation (assuming that there is no contraindication). This should be performed accordi ng to the arthrogram protocol, if there is strong clinical concern for a labral abnormality. Reviewed by: Tree Mane MD on 02/19/2021 1:33 PM [facility] Approved by: Tree Mane MD on 02/19/2021 1:33 PM [facility] Station ID: [id number]
[2021-02-19] MEDS ORDERED: PROPRANOLOL 10 MG TABLET PO STA (14:36)
--- NOTE | 2021-02-19 14:37 | XRAY Report ---
PROCEDURE: Knee 4 View LT INDICATIONS: hip/knee inj TECHNIQUE: 4 views of the left knee(s) were acquired. COMPARISON: 10/15/2016, 11/14/2016. Correlation is also made with the accompanying hip plain films, . FINDINGS: Bones: No fractures or dislocations. No suspicious bony lesions. The knee joint spaces are relativ salvador well-preserved. Soft tissues: No significant joint effusion. No suspicious soft tissue calcifications. IMPRESSION: No significant plain film abnormality is seen. Reviewed by: Tree Mane MD on 02/19/2021 1:35 PM [facility] Approved by: Tree Mane MD on 02/19/2021 1:35 PM [facility] Station ID: [id number]
[2021-02-19] MEDS: KETOROLAC 60 MG/2 ML VIAL IM STA ×2 (14:43→14:47)
[2021-02-19] MEDS: METOCLOPRAMIDE 10 MG/2 ML VIAL IM STA ×2 (14:43→14:47)
== END 2021-02-19 14:58 | disposition home or self-care (01) ==
LOC: ED 12:51
DX: S70.02XA Contusion of left hip, initial encounter (principal); S83.92XA Sprain of unspecified site of left knee, initial encounter; W19.XXXA Unspecified fall, initial encounter
CPT/HCPCS: 73502; 73564; 99283; 99284; A9270; J2765